=== PATIENT | male | born 2000 | race Caucasian/White ===

== ENCOUNTER 2024-07-19 20:01 | Emergency (ER) | payer MEDICAID, SELFPAY ==
[2024-07-19 20:02] VITALS: BMI 20.6
[2024-07-19 20:20] VITALS: BP 118/83; PULSE 106; RESP 19; TEMP 36.6; O2SAT 97
--- NOTE | 2024-07-19 20:25 | PD.EDADULT ---
ED General RME/HPI General Chief complaint: General Adult/Misc Complain Stated complaint: FEELS DEHYDRATED Time Seen by Provider: 07/19/24 20:23 Source: patient and family Arrival date/time: 07/19/24 20:01 23-year-old male with past medical history of right lower quadrant ileostomy presents emergency department complaining of feels dehydrated since today. Patient denies any chills, fever, nausea vomiting, abdominal pain, shortness of breath, or any other associated symptom. Mode of arrival: ambulatory Limitations: no limitations Related Data Home Medications ?Medication ?Instructions ?Recorded ?Confirmed azathioprine 50 mg tablet 50 mg PO BID 07/11/24 07/11/24 Previous Rx's ?Medication ?Instructions ?Recorded pantoprazole 40 mg tablet,delayed 40 mg PO QDAY #30 tabs 06/10/24 release diphenoxylate-atropine 2.5 2 tab PO TID 7 days #42 tabs 07/16/24 mg-0.025 mg tablet (Lomotil) loperamide 2 mg tablet 20 mg (10 x 2 mg) PO TID #180 tabs 07/16/24 mesalamine 500 mg capsule,extended 1,000 mg (2 x 500 mg) PO BID #60 07/16/24 release caps prednisone 5 mg tablets in a dose 5 mg PO QDAY #48 tabs 07/16/24 pack Allergies Allergy/AdvReac Type Severity Reaction Status Date / Time No Known Allergies Allergy Verified 07/04/24 12:55 Review of Systems Review of Systems Systems Reviewed: All systems reviewed, normal except as documented Constitutional Constitutional: Reports system reviewed and no additional complaints, except as documented, Denies body ache(s), Denies chills, Denies fever(s) and Reports other (Feels dehydrated) Eyes Eyes: Reports system reviewed and no additional complaints, except as documented and Denies change in vision ENT Ears, Nose, Mouth, and Throat: Reports system reviewed and no additional complaints, except as documented, Denies disequilibrium, Denies dizziness, Denies sore throat and Denies vertigo Cardiovascular Cardiovascular: Reports system reviewed and no additional complaints, except as documented, Denies chest pain and Denies dyspnea Respiratory Respiratory: Reports system reviewed and no additional complaints, except as documented, Denies chest congestion, Denies cough and Denies dyspnea Gastrointestinal Gastrointestinal: Reports system reviewed and no additional complaints, except as documented, Denies abdominal pain, Denies nausea and Denies vomiting Musculoskeletal Musculoskeletal: Reports system reviewed and no additional complaints, except as documented, Denies abnormal gait and Denies arthralgias Integumentary/Breasts Skin/Breast: Reports system reviewed and no additional complaints, except as documented, Denies erythema, Denies rash and Denies wounds Neurologic Neurologic: Reports system reviewed and no additional complaints, except as documented, Denies abnormal gait, Denies disequilibrium, Denies dizziness and Denies vertigo Past Medical History Past Medical History NEUROLOGIC: Negative Neurological Disorders or Seizures CARDIAC: Negative Cardiac Disorders or Congestive Heart Failure RESPIRATORY: Negative Chronic Obstructive Pulmonary Disease (COPD) or Asthma GASTROINTESTINAL: Negative Gastrointestinal Disorders GENITOURINARY: Negative Genitourinary Disorders or Renal Disease MUSCULOSKELETAL: Negative Musculoskeletal Disorders ENDOCRINE: Negative Endocrine Disorders, Diabetes Mellitus Type 1 or Diabetes Mellitus Type 2 HEMATOLOGIC: Negative Blood Disorders or Sickle Cell Disease OTHER HISTORY: Negative Hospitalization, Autoimmune Disease, Blood Transfusions, Blood Transfusion Reaction, Anesthesia Reactions, Chemotherapy, Hepatitis C or Cancer Social History SMOKING STATUS: Never smoker ED Exam General Limitations: Present no limitations General appearance: Present alert and in no apparent distress Head Head exam: Present atraumatic Eye Eye exam: Present normal appearance, PERRL and EOMI ENT ENT exam: Present normal exam, normal oropharynx and mucous membranes moist Neck Neck exam: Present normal inspection, full ROM and trachea midline Chest Chest inspection: Present normal inspection and symmetric chest wall rise Respiratory Respiratory exam: Present normal lung sounds bilaterally Cardiovascular Cardiovascular exam: Present regular rate, normal rhythm and normal heart sounds Abdominal Exam Abdominal exam: Present soft, normal bowel sounds and other (Ileostomy right lower quadrant) Extremities Exam Extremities exam: Present normal inspection and full ROM Back Exam Back exam: Present normal inspection and full ROM Neurological Exam Neurological exam: Present alert, oriented X3 and CN II-XII intact Psychiatric Psychiatric exam: Present normal affect and normal mood Skin Skin exam: Present warm, dry, intact and normal color Course Quality Measures none Orders Category Date Time Status CBC Stat Lab 07/19/24 20:42 Completed CMP [Comprehensive Metabolic Panel] Stat Lab 07/19/24 20:42 Completed Urinalysis, C/S if Indicated Stat Lab 07/19/24 21:00 Completed Vital Signs Vital signs: Vital Signs Temperature 98 F 07/19/24 20:20 Pulse Rate 106 H 07/19/24 20:20 Respiratory Rate 19 07/19/24 20:20 Blood Pressure 118/83 07/19/24 20:20 Pulse Oximetry (%) 97 07/19/24 20:20 Oxygen Delivery Method Room Air 07/19/24 20:20 97% room air within normal limits [facility] Patient data External records reviewed:: [facility] previous records Clinical information provided by:: patient Social determinants that could affect healthcare access:: none Patient has the following chronic illnesses:: See chart How is presenting disease/condition affected by chronic disease/condition?: exacerbated by Evaluation data The following diagnostics were reviewed and interpreted by me:: lab results Lab and/or radiology exams considered but not ordered:: Ordered Interpretation Summary: Interpreted by me Medications Medications considered but not ordered:: N/A Medication administrations:: n/a Consultations Consultation(s) initiated? (list below): No Diagnosis Differential Diagnosis ED Complaint MDM: Eloped before final disposition Most likely diagnosis given after review of the tests above:: Eloped before final disposition Admission Indicated Admission indicated?: not indicated Explain why admission is indicated or not indicated:: Eloped before final disposition Admission Request Was there a request for admission?: No Disposition Plan Disposition Plan: other (specify) (Eloped before final disposition) Medical Decision Making MDM Narrative MDM Narrative: 23-year-old male with past medical history of right lower quadrant ileostomy presents emergency department complaining of feels dehydrated since today. Patient denies any chills, fever, nausea vomiting, abdominal pain, shortness of breath, or any other associated symptom. Patient eloped before final disposition. Differential Diagnosis Differential Diagnosis: Eloped before final disposition Lab Data 07/19/24 20:42 07/19/24 20:42 Labs: Lab Results 07/19/24 07/19/24 Range/Units 20:42 21:00 WBC 8.4 (3.8-10.6) Thou/mm3 RBC 4.62 (4.50-5.90) Miln/mm3 Hgb 13.0 L D (13.5-16.0) g/dL Hct 39.8 L (41.0-53.0) % MCV 86 (80-100) fL MCH 28.1 (25.0-35.0) pg MCHC 32.7 (31.0-37.0) g/dl RDW Std Deviation 55.8 H (35.1-43.9) fL Plt Count 376 D (140-440) Thou/mm3 Neut % (Auto) 57 (37-80) % Lymph % (Auto) 22 (10-50) % Schuyler % (Auto) 13 H (0-12) % Eos % (Auto) 3 (0-10) % Baso % (Auto) 1 (0-2.5) % Neut # (Auto) 4.8 (1.8-7.7) Thou/mm3 Lymph # (Auto) 1.8 (1.0-4.8) Thou/mm3 Schuyler # (Auto) 1.1 H (0.0-0.8) Thou/mm3 Eos # (Auto) 0.2 (0.0-0.5) Thou/mm3 Baso # (Auto) 0.1 (0.0-0.2) Thou/mm3 Immature Gran # (Auto) 0.36 H (0.00-0.00) Thou/mm3 Absolute Nucleated RBC 0.00 (0.00-0.00) Thou/mm3 Immature Gran % 4 H (0-0) % Nucleated RBC % 0 (0) /100 WBC Sodium 142 (136-145) mMol/L Potassium 4.1 (3.4-5.1) mMol/L Chloride 104 (98-107) mMol/L Carbon Dioxide 31.0 (20.0-31.0) mMol/L Anion Gap 7 (7-16) BUN 16 (9-23) mg/dL Creatinine 0.8 (0.6-1.3) mg/dL Estim Creat Clear Calc 149.4 (>60) mL/min eGFR > 60 (60 - ) See Note BUN/Creatinine Ratio 20 (12-20) Ratio Glucose 94 (74-106) mg/dL Calculated Osmolality 284 (275-295) Calcium 10.6 (8.3-10.6) mg/dL Corrected Calcium 10.6 H (8.5-10.1) mg/dL Total Bilirubin 0.5 (0.3-1.2) mg/dL AST 43 H (0-34) U/L ALT 106 H (10-49) U/L Alkaline Phosphatase 133 H (46-116) U/L Total Protein 8.0 (5.7-8.2) gm/dL Albumin 4.9 (3.5-5.0) gm/dL Globulin 3.1 (2.3-3.5) gm/dL Albumin/Globulin Ratio 1.6 (1.2-2.2) Ur Collection Type Clean Catch Urine Color Yellow (Lt Yel-Yel) Urine Clarity Clear (Clear/Hazy) Urine pH 6.5 (5.0-7.0) Ur Specific [place] 1.037 H (1.001-1.035) Urine Protein 1+ A (Neg - Trace) Urine Glucose (UA) Negative (Negative) Urine Ketones Negative (Negative) Urine Blood Trace (Negative) Urine Nitrite Negative (Negative) Urine Bilirubin Negative (Negative) Urine Urobilinogen (Auto) Negative (0.0-1.0) mg/dL Ur Leukocyte Esterase Negative (Negative) Urine RBC 5 H (0-3) /hpf Urine WBC 4 (0-5) /hpf Ur Squamous Epith Cells < 1 (0-5) /hpf Urine Bacteria None (None) Ur Culture Indicated? Not Indicated Discharge Plan Plan Patient Disposition: Elopement Prescriptions/Referrals Prescriptions/Med Rec: No Action pantoprazole 40 mg tablet,delayed release (DR/EC) 40 mg PO QDAY Qty: 30 0RF azathioprine 50 mg tablet 50 mg PO BID Patient Comments: TAKE 1 TABLET BY MOUTH TWICE DAILY mesalamine 500 mg capsule, extended release 1,000 mg PO BID Qty: 60 2RF loperamide 2 mg tablet 20 mg PO TID Qty: 180 2RF diphenoxylate-atropine [Lomotil] 2.5-0.025 mg tablet 2 tab PO TID 7 Days Qty: 42 0RF prednisone 5 mg tablets,dose pack 5 mg PO QDAY Qty: 48 0RF Referrals: Hamlet Escamilla MD [Primary Care Provider] - In 1 week Problem List Clinical Impression: Eloped from emergency department Patient/Caregiver Discharge Instructions Print Language: Lithuanian MD Attestation MD Attestation The patient was seen by the midlevel practitioner. I, the co-signing physician, was present during the entire ER visit. While I did not physically examine the patient, I was available for consultation as needed.
[2024-07-19 21:08] LABS: Collection Type, Urine Clean Catch
[2024-07-19 21:14] LABS: Bilirubin,Urine Negative (Negative); Blood,Urine Trace (Negative); Clarity,Urine Clear (Clear/Hazy); Color,Urine Yellow (Lt Yel-Yel); Culture Indicated,Urine Not Indicated; Glucose, Urine Negative (Negative); Ketones,Urine Negative (Negative); Leukocyte Esterase,Urine Negative (Negative); Nitrite,Urine Negative (Negative); PH,Urine 6.5 (5.0-7.0); Protein,Urine 1+ (Neg - Trace); RBC,Urine 5 /hpf (0-3); Specific Gravity,Urine 1.037 (1.001-1.035); Squamous Epithelial Cell,Urine < 1 /hpf (0-5); Urobilinogen,Urine Negative mg/dL (0.0-1.0); WBC,Urine 4 /hpf (0-5)
[2024-07-19 21:21] LABS: Basophils # (Auto) 0.1 Thou/mm3 (0.0-0.2); Basophils % (Auto) 1 % (0-2.5); Eosinophils # (Auto) 0.2 Thou/mm3 (0.0-0.5); Eosinophils % (Auto) 3 % (0-10); Hematocrit 39.8 % (41.0-53.0); Immature Granulocytes % (Auto) 4 % (0-0); Immature Granulocytes Auto 0.36 Thou/mm3 (0.00-0.00); Lymphocytes # (Auto) 1.8 Thou/mm3 (1.0-4.8); Lymphocytes % (Auto) 22 % (10-50); Mean Corpuscular HGB Conc 32.7 g/dl (31.0-37.0); Mean Corpuscular Hemoglobin 28.1 pg (25.0-35.0); Mean Corpuscular Volume 86 fL (80-100); Monocytes # (Auto) 1.1 Thou/mm3 (0.0-0.8); Monocytes % (Auto) 13 % (0-12); Neutrophils # (Auto) 4.8 Thou/mm3 (1.8-7.7); Neutrophils % (Auto) 57 % (37-80); Nucleated Red Blood Cell % 0 /100 WBC (0); Platelet Count 376 Thou/mm3 (140-440); RDW Standard Deviation 55.8 fL (35.1-43.9); Red Blood Count 4.62 Miln/mm3 (4.50-5.90); White Blood Count 8.4 Thou/mm3 (3.8-10.6)
[2024-07-19 22:09] LABS: Alanine Aminotransferase 106 U/L (10-49); Albumin, Serum 4.9 gm/dL (3.5-5.0); Albumin/Globulin Ratio 1.6 (1.2-2.2); Alkaline Phosphatase 133 U/L (46-116); Anion Gap 7 (7-16); Aspartate Amino Transferase 43 U/L (0-34); BUN/Creatinine Ratio 20 Ratio (12-20); Bilirubin,Total 0.5 mg/dL (0.3-1.2); Blood Urea Nitrogen 16 mg/dL (9-23); Calcium 10.6 mg/dL (8.3-10.6); Calcium (Corrected) 10.6 mg/dL (8.5-10.1); Chloride 104 mMol/L (98-107); Creatinine (Component) 0.8 mg/dL (0.6-1.3); Estimated Creatinine Clearance 149.4 mL/min (>60); Globulin 3.1 gm/dL (2.3-3.5); Glucose 94 mg/dL (74-106); Osmolality,Calculated 284 (275-295); Potassium 4.1 mMol/L (3.4-5.1); Sodium 142 mMol/L (136-145); eGFR > 60 See Note
[2024-07-19 23:42] VITALS: BP 116/75; PULSE 77; RESP 18; TEMP 36.5; O2SAT 100
--- NOTE | 2024-07-19 23:43 | PC.NURSE ---
Pt walk out of RP after talking to provider.
== END 2024-07-19 23:44 | disposition left against medical advice (07) ==
PROVIDERS: Emergency Provider Emergency Medicine
DX: Z53.29 Procedure and treatment not carried out because of patient's decision for other reasons (principal)
CPT/HCPCS: 36415; 80053; 81001; 85025; 99281

== ENCOUNTER 2024-07-23 08:25 | Emergency (ER) | payer MEDICAID, SELFPAY ==
[2024-07-23 08:36] VITALS: BP 144/98; PULSE 90; RESP 19; TEMP 37; O2SAT 99; BMI 20.4
--- NOTE | 2024-07-23 08:37 | EDNOTE_ITS ---
ED Abdominal Pain RME/HPI General Chief Complaint: Abdominal Pain Stated complaint: lump under ostomy bag Time seen by provider: 07/23/24 08:31 Arrival date/time: 07/23/24 08:25 23-year-old male presents the emergency department today stating that he had a colostomy placed back in May patient reports he felt like there was a bump near his colostomy bag today patient reports no fever nausea or vomiting no diarrhea no change in stool pattern there are no other associated symptoms or aggravating factors no other modifying factors, patient denies taking medication before coming to ER today Limitations: no limitations Related Data Home Medications ?Medication ?Instructions ?Recorded ?Confirmed azathioprine 50 mg tablet 50 mg PO BID 07/11/24 07/11/24 Previous Rx's ?Medication ?Instructions ?Recorded pantoprazole 40 mg tablet,delayed 40 mg PO QDAY #30 tabs 06/10/24 release loperamide 2 mg tablet 20 mg (10 x 2 mg) PO TID #180 tabs 07/16/24 mesalamine 500 mg capsule,extended 1,000 mg (2 x 500 mg) PO BID #60 07/16/24 release caps prednisone 5 mg tablets in a dose 5 mg PO QDAY #48 tabs 07/16/24 pack Allergies Allergy/AdvReac Type Severity Reaction Status Date / Time No Known Allergies Allergy Verified 07/23/24 08:28 Review of Systems Review of Systems Systems Reviewed: All systems reviewed, normal except as documented Constitutional Constitutional: Reports system reviewed and no additional complaints, except as documented, Denies fever(s) and Denies headache(s) Eyes Eyes: Reports system reviewed and no additional complaints, except as documented and Denies blurry vision ENT Ears, Nose, Mouth, and Throat: Reports system reviewed and no additional complaints, except as documented, Denies headache(s), Denies nasal congestion and Denies nasal discharge Cardiovascular Cardiovascular: Reports system reviewed and no additional complaints, except as documented, Denies chest pain and Denies dyspnea Respiratory Respiratory: Reports system reviewed and no additional complaints, except as documented, Denies chest congestion, Denies cough and Denies dyspnea Gastrointestinal Gastrointestinal: Reports system reviewed and no additional complaints, except as documented, Denies abdominal pain and Reports other (Colostomy right lower abdomen) Integumentary/Breasts Skin/Breast: Reports system reviewed and no additional complaints, except as documented and Denies rash Neurologic Neurologic: Reports system reviewed and no additional complaints, except as documented, Reports as per HPI and Denies headache(s) Past Medical History Past Medical History NEUROLOGIC: Negative Neurological Disorders or Seizures CARDIAC: Negative Cardiac Disorders or Congestive Heart Failure RESPIRATORY: Negative Chronic Obstructive Pulmonary Disease (COPD) or Asthma GASTROINTESTINAL: Negative Gastrointestinal Disorders GENITOURINARY: Negative Genitourinary Disorders or Renal Disease MUSCULOSKELETAL: Negative Musculoskeletal Disorders ENDOCRINE: Negative Endocrine Disorders, Diabetes Mellitus Type 1 or Diabetes Mellitus Type 2 HEMATOLOGIC: Negative Blood Disorders or Sickle Cell Disease OTHER HISTORY: Negative Hospitalization, Autoimmune Disease, Blood Transfusions, Blood Transfusion Reaction, Anesthesia Reactions, Chemotherapy, Hepatitis C or Cancer Social History SMOKING STATUS: Never smoker ED Exam General Limitations: Present no limitations General appearance: Present alert and in no apparent distress Head Head exam: Present atraumatic Eye Eye exam: Present normal appearance, PERRL and EOMI ENT ENT exam: Present normal exam, normal oropharynx and mucous membranes moist Neck Neck exam: Present normal inspection, full ROM and trachea midline Chest Chest inspection: Present normal inspection and symmetric chest wall rise Respiratory Respiratory exam: Present normal lung sounds bilaterally Cardiovascular Cardiovascular exam: Present regular rate, normal rhythm and normal heart sounds Abdominal Exam Abdominal exam: Present soft, normal bowel sounds and other (Colostomy right lower abdomen); Absent distention, tenderness, guarding, rebound or rigidity Extremities Exam Extremities exam: Present normal inspection and full ROM Back Exam Back exam: Present normal inspection and full ROM Neurological Exam Neurological exam: Present alert, oriented X3 and CN II-XII intact Psychiatric Psychiatric exam: Present normal affect and normal mood Skin Skin exam: Present warm, dry, intact and normal color Course Quality Measures none Vital Signs Vital signs: Vital Signs Temperature 98.6 F 07/23/24 08:36 Pulse Rate 90 07/23/24 08:36 Respiratory Rate 19 07/23/24 08:36 Blood Pressure 144/98 H 07/23/24 08:36 Pulse Oximetry (%) 99 07/23/24 08:36 Oxygen Delivery Method Room Air 07/23/24 08:36 O2 saturation 99% room air within normal limits Abdominal Pain MDM MDM Narrative MDM Narrative:: 23-year-old male presents the emergency department today stating that he had a colostomy placed back in May patient reports he felt like there was a bump near his colostomy bag today patient reports no fever nausea or vomiting no diarrhea no change in stool pattern there are no other associated symptoms or aggravating factors no other modifying factors, patient denies taking medication before coming to ER today On exam patient well-appearing patient does not appear ill or toxic patient has nontender abdomen patient does have colostomy in place with no evidence of infe ction at site no swelling no bruising Explained to the patient that I do not appreciate any abnormality at this time he should follow-up with his general surgeon and for worsening symptoms return immediately Patient data External records reviewed:: [facility] previous records Clinical information provided by:: patient Social determinants that could affect healthcare access:: none Patient has the following chronic illnesses:: See history How is presenting disease/condition affected by chronic disease/condition?: caused by Evaluation data The following diagnostics were reviewed and interpreted by me:: lab results and radiology exam(s) Lab and/or radiology exams considered but not ordered:: Labs and radiology obtained Interpretation Summary: Reviewed by me Medications / Prescriptions Medications or Prescriptions considered but not ordered:: Given no meds Medication administrations:: Given no meds Consultations Consultation(s) initiated? (list below): No Diagnosis Differential diagnosis abdominal pain: abdominal pain, pancreatitis and small bowel obstruction Most likely diagnosis given after review of the tests above:: Colostomy problems Admission Indicated Admission indicated?: not indicated Admission Request Was there a request for admission?: No Disposition Plan Disposition Plan: Discharge Discharge Attestation Discharge Attestation: The patient and all family members were given an opportunity to ask questions and understood the discharge instructions. Discharge instructions specifically effects, indications for sooner follow up or return to the emergency department, and the expected course of current diagnosis. Patient condition: Stable Discharge Plan Plan Patient Disposition: HOME (Self Care) Disposition Comment: Stable Prescriptions/Referrals Prescriptions/Med Rec: No Action pantoprazole 40 mg tablet,delayed release (DR/EC) 40 mg PO QDAY Qty: 30 0RF azathioprine 50 mg tablet 50 mg PO BID Patient Comments: TAKE 1 TABLET BY MOUTH TWICE DAILY mesalamine 500 mg capsule, extended release 1,000 mg PO BID Qty: 60 2RF loperamide 2 mg tablet 20 mg PO TID Qty: 180 2RF prednisone 5 mg tablets,dose pack 5 mg PO QDAY Qty: 48 0RF Problem List Clinical Impression: Colostomy care Patient/Caregiver Discharge Instructions Additional Instructions: Please follow-up with your surgeon as discussed for worsening symptoms return i mmediately Print Language: Chinese Stand Alone Forms: Shelbi Award Info., Patient Portal Info Letter Attestation MD Attestation The patient was seen by the midlevel practitioner. I, the co-signing physician, was present during the entire ER visit. While I did not physically examine the patient, I was available for consultation as needed.
== END 2024-07-23 08:44 | disposition home or self-care (01) ==
LOC: SERX 08:42
PROVIDERS: Emergency Provider Emergency Medicine; PCP Emergency Medicine
DX: Z93.3 Colostomy status (principal)
CPT/HCPCS: 99281

== ENCOUNTER 2024-08-03 14:52 | Outpatient (AMB) | payer MEDICAID, SELFPAY ==
[2024-08-03 15:09] VITALS: BP 137/88; PULSE 72; RESP 18; TEMP 36.6; O2SAT 97; BMI 20.7
--- NOTE | 2024-08-03 15:09 | PD.GSCLVISIT ---
Vital Signs - [facility] 08/03/24 15:09 Height 1.88 m Height Method Stated Weight 73.539 kg Weight Measurement Method Standing Scale BMI 20.7 BP 137/88 H Blood Pressure Source Automatic Cuff Blood Pressure Location Left Upper Arm Position Sitting Respiration 18 Pulse 72 Pulse Source Monitor Temp 97.8 F Temp Source Temporal Artery Scan Pulse Oximetry (%) 97 Oxygen Delivery Method Room Air Med/Allergies Allergies & Medications Allergies No Known Allergies Allergy (Verified 08/03/24 15:10) MA Intake Visit Data Collection New Patient or Established: Established Patient (seen at [facility] within 3 years) Reason for Visit:: 2 WEEK FOLLOW UP Pain Present Currently: No [place] Setter Required: No PCP or OBGYN visit in last 3 months: Yes Hx Now: No Do You Feel Safe at Home: Yes Authorities Contacted: N/A Smoking Status Smoking Status: Never smoker Immunization / Flu Flu Vaccine in the Last 12 Months: No Flu Vaccine Exclusion Criteria: No Exclusion Criteria Past Medical History Past Medical History NEUROLOGIC: Negative Neurological Disorders or Seizures CARDIAC: Negative Cardiac Disorders or Congestive Heart Failure RESPIRATORY: Negative Chronic Obstructive Pulmonary Disease (COPD) or Asthma GASTROINTESTINAL: Negative Gastrointestinal Disorders GENITOURINARY: Negative Genitourinary Disorders or Renal Disease ENDOCRINE: Negative Endocrine Disorders, Diabetes Mellitus Type 1 or Diabetes Mellitus Type 2 HEMATOLOGIC: Negative Blood Disorders or Sickle Cell Disease OTHER HISTORY: Negative Hospitalization, Autoimmune Disease, Blood Transfusions, Blood Transfusion Reaction, Anesthesia Reactions, Chemotherapy, Hepatitis C or Cancer Social History SMOKING STATUS: Smoking status: Never smoker ALCOHOL: Alcohol Intake: Current ALCOHOL FREQUENCY: Alcohol Intake Frequency: holidays/special occasions only HOUSING: Housing: House LIVES WITH: Lives With: Significant Other HPI HPI Narrative 23M who presented May 2024 with pneumoperitoneum requiring emergent laparotomy, small bowel resection followed by end ileostomy 05/30, here for planned follow up after most recent discharge for dehydration. Pt reports he is taking imodium and lomotil as prescribed; he has episodes of nausea but has not decreased his anti-diarrheals as he is still having plenty of output. Pt is eating well and denies pain ROS Review of Systems Systems Reviewed: All systems reviewed, normal except as documented Objective/Exam General General Appearance: alert, cooperative and well groomed Resp Respiratory exam: Absent respiratory distress Abdominal Abdominal exam: Present soft, incision (midline incision healed) and other (ileostomy pink with brown liquid stool); Absent distention or tenderness Assessment & Plan Diagnosis / Problem List (1) Crohn's disease of ileum with complication: Status: Acute Assessment & Plan: 23M who presented May 2024 with pneumoperitoneum requiring emergent laparotomy, small bowel resection followed by end ileostomy 05/30, recovering well overall. I will schedule ileostomy reversal along with cholecystectomy (due to pt having choledocholithiasis in the interim) and explained risks of surgery including anastomotic leak, bleeding, infection and hernia. I also informed pt that his prednisone use slightly increases these risks. Pt and fiance expressed understanding and are agreeable to proceeding Office Procedures GNS Level of Care Nursing/Assessment Patient Status: Established Patient Nursing Assessment/Reassesment: Medication Reconciliation, Update PMH in EMR and Vital Signs Coordination of Care: Complex Care and Chronic Disease 1-5, Consent,records obtained, informed consent, Education Simp Pt/Fam and Staff clarify orders Established Patient Charge Established Patient Point Assignment: 85 Established Patient Point Charge: EP Level 3 (80-115) Patient Portal Questionaires Social History Living Situation History Housing: House Housing Other:: Patient resides with significant other. Tobacco History Smoking Status: Never smoker Alcohol History Alcohol Intake: Current Alcohol Intake Frequency: holidays/special occasions only Domestic Abuse History Do You Feel Safe at Home: Yes Review of Systems Report any current symptoms Only answer those that you have currently: Past Medical History Past Medical History Have you ever been diagnosed with any of the following: Neurological Problems Seizures: No Cardiology Problems Congestive Heart Failure: No Respiratory Problems Chronic Obstructive Pulmonary Disease (COPD): No Asthma: No Genital/Urinary Problems Renal Disease: No Endocrine Problems Diabetes Mellitus Type 1: No Diabetes Mellitus Type 2: No Blood Problems Sickle Cell Disease: No Other Problems Hospitalization: No Autoimmune Disease: No Blood Transfusions: No Blood Transfusion Reaction: No Anesthesia Reactions: No Chemotherapy: No Hepatitis C: No Cancer: No
== END 2024-08-03 16:13 | disposition home or self-care (01) ==
LOC: HODSRG 14:52
PROVIDERS: PCP Physician Assistant Medical; Referring Provider Physician Assistant Medical; Supervising Provider Surgery; Visit Provider Surgery
DX: Z48.815 Encounter for surgical aftercare following surgery on the digestive system (principal); K80.50 Calculus of bile duct without cholangitis or cholecystitis without obstruction
CPT/HCPCS: 99213; G0463

== ENCOUNTER → 2024-08-10 | Outpatient (CLI) | payer MEDICAID, SELFPAY | END | disposition home or self-care (01) | LOC: SWHD 13:38 | PROVIDERS: PCP Physician Assistant Medical; Referring Provider Physician Assistant Medical; Visit Provider Surgery | DX: T81.89XA Other complications of procedures, not elsewhere classified, initial encounter (principal); K50.90 Crohn's disease, unspecified, without complications; E86.0 Dehydration | CPT/HCPCS: 99213; A9270; G0463 ==

== ENCOUNTER 2024-08-18 12:30 | Inpatient (IN) | payer MEDICAID, SELFPAY ==
[2024-08-17 12:02] VITALS: BMI 19.8
[2024-08-17 13:11] LABS: Basophils % (Auto) 1 % (0-2.5); Eosinophils # (Auto) 0.3 Thou/mm3 (0.0-0.5); Eosinophils % (Auto) 4 % (0-10); Hematocrit 38.7 % (41.0-53.0); Hemoglobin 12.8 g/dL (13.5-16.0); Immature Granulocytes % (Auto) 1 % (0-0); Immature Granulocytes Auto 0.03 Thou/mm3 (0.00-0.00); Lymphocytes # (Auto) 1.5 Thou/mm3 (1.0-4.8); Lymphocytes % (Auto) 23 % (10-50); Mean Corpuscular HGB Conc 33.1 g/dl (31.0-37.0); Mean Corpuscular Hemoglobin 28.6 pg (25.0-35.0); Mean Corpuscular Volume 87 fL (80-100); Monocytes # (Auto) 0.9 Thou/mm3 (0.0-0.8); Monocytes % (Auto) 13 % (0-12); Neutrophils # (Auto) 3.9 Thou/mm3 (1.8-7.7); Neutrophils % (Auto) 60 % (37-80); Nucleated Red Blood Cell % 0 /100 WBC (0); Platelet Count 327 Thou/mm3 (140-440); RDW Standard Deviation 51.8 fL (35.1-43.9); Red Blood Count 4.47 Miln/mm3 (4.50-5.90); White Blood Count 6.6 Thou/mm3 (3.8-10.6)
[2024-08-17 13:23] LABS: Alanine Aminotransferase 134 U/L (10-49); Albumin, Serum 5.3 gm/dL (3.5-5.0); Alkaline Phosphatase 130 U/L (46-116); Anion Gap 7 (7-16); Aspartate Amino Transferase 88 U/L (0-34); BUN/Creatinine Ratio 16 Ratio (12-20); Bilirubin,Total 0.8 mg/dL (0.3-1.2); Blood Urea Nitrogen 14 mg/dL (9-23); Calcium 10.4 mg/dL (8.3-10.6); Calcium (Corrected) 10.4 mg/dL (8.5-10.1); Carbon Dioxide 31.1 mMol/L (20.0-31.0); Chloride 100 mMol/L (98-107); Creatinine (Component) 0.9 mg/dL (0.6-1.3); Estimated Creatinine Clearance 127.3 mL/min (>60); Globulin 2.6 gm/dL (2.3-3.5); Glucose 85 mg/dL (74-106); INR 1.2 (0.9-1.3); Osmolality,Calculated 275 (275-295); Partial Thromboplastin Time 29.5 Seconds (22.0-36.0); Potassium 3.6 mMol/L (3.4-5.1); Prothrombin Time 12.9 Seconds (9.0-12.2); Sodium 138 mMol/L (136-145); Total Protein 7.9 gm/dL (5.7-8.2); eGFR > 60 See Note
[2024-08-18] VITALS (11 sets, daily range): BP systolic 129–161; BP diastolic 88–116; PULSE 73–109; RESP 12–20; TEMP 36.2–36.4; O2SAT 99–100; BMI 19.5; BMI 22.4
[2024-08-18] MEDS: RINGERS LACTATED 1000 ML 1,000 ML 20 ML IV (13:23)
--- NOTE | 2024-08-18 19:16 | PD.SUROPNT ---
Date of Procedure 08/18/24 Pre Op Diagnosis Crohn's disease requiring ileostomy, choledocholithiasis Post Op Diagnosis Same Procedure Laparotomy, cholecystectomy, reversal of ileostomy, appendectomy Findings Gallbladder with stones, [id number] ileoileal anastomosis created, normal-appearing appendix Procedure Description After discussion of risks and benefits, patient was brought to the operating room, SCDs were placed and general anesthesia was induced. He received preoperative antibiotics and the ileostomy was closed with 0 silk suture. He was prepped and draped in the usual sterile fashion. After timeout a midline incision was made with a #10 blade and the tissues were dissected with electrocautery. When the peritoneum was reached it was elevated with tonsil clamps and incised with Metzenbaum scissors. The remaining peritoneum was opened using electrocautery. First attention was turned to the gallbladder. The fundus of the gallbladder was grasped and retracted cephalad and the infundibulum was grasped and retracted laterally. The critical view of safety was achieved using blunt dissection and the cystic duct and cystic artery were clipped and transected in the usual fashion. The clips of the cystic duct were reinforced with a Vicryl Endoloop. The gallbladder was removed from gallbladder bed using electrocautery and hemostasis was confirmed. After that I then turned attention to the existing end ileostomy. An incision was then made circumferentially adjacent to the stoma using electrocautery and the tissues were dissected using a combination of blunt dissection and electrocautery until the stoma was freed. This portion of the ileum was then returned to the midline and eviscerated through the midline incision. There were some adhesions of the small bowel to the lower abdominal wall so the midline incision was extended inferiorly until the efferent limb of the ileum was identified. A [id number] ileoileal anastomosis was created between the afferent and efferent loops and the staple line was reinforced with a 3-0 Vicryl running and locking suture. The crotch of the anastomosis was also reinforced with the 3-0 Vicryl serosal suture. The abdomen was irrigated and hemostasis was confirmed. At this point I spoke to the patient's fianc as I realize I had not counseled them preoperatively that appendectomye would be advised in this case just in case patient returns to the ER with questionable abdominal pain in the setting of his known Crohn's disease. I explained the risks and benefits of the procedure and his fianc?e agreed for me to proceed. I then performed appendectomy by creating a window between the base of the appendix and the mesoappendix using blunt dissection and stapling the base of the appendix with a 60 mm blue load stapler. The mesoappendix was transected with the Enseal device. The staple line was examined and there were no signs of bleeding. Again the abdomen was irrigated and there were no signs of bleeding. The ileostomy fascia was closed with interrupted 0 Ethibond [id number] sutures and then approximated with a 0 Vicryl pursestring suture. The midline fascia was closed with 0 PDS. Both wounds were irrigated and dressed with a wound VAC that was bridged between both sites. Patient was extubated and brought to PACU in stable condition. Pathology / specimen Other (Gallbladder, portion of ileum, appendix) Estimated Blood Loss 300 Surgeon Roula Estrella MD Surgical Staff Operation Date: 08/18/24 14:15 Case Staff PROFESSOR OF RHETORIC: Dewey Avina RN First Assistant: Shweta Palma
--- NOTE | 2024-08-18 19:30 | SUR.PHASEI ---
Addendum entered by Nichole Andino RN 08/18/24 20:43: 1930: wound vac in place Original Note: pt arrived to PACU via bed, breathing unlabored, dressing to abdomen clean, dry and intact-skin under dressing red on right lower abdomen-Dr Estrella aware and at bedside-no new orders given, report from Reza FREEMAN and Tonio HUSAIN
[2024-08-18] MEDS: MORPHINE SULF 1 MG/ML PCA SYRINGE 30 ML PCA (20:01)
[2024-08-18] MEDS: SODIUM CHLORIDE 0.9% 1000 ML 1,000 ML 75 ML IV (20:04)
--- NOTE | 2024-08-18 20:20 | SUR.PHASEI ---
pt drowsy but arouses to verbal commands, breathing unlabored, dressing to abdomen clean, dry, and intact, wound vac in place, report called to Shruthi FREEMAN, pt transferred to room at this time
[2024-08-18] MEDS: HEPARIN SOD INJ 5000 UNIT/ML VIAL SC (22:52)
[2024-08-19] VITALS (12 sets, daily range): BP systolic 114–128; BP diastolic 79–89; PULSE 93–117; RESP 16–97; TEMP 36.2–37; O2SAT 96–100; BMI 22.2
[2024-08-19] MEDS: CEFOXITIN 2 GM in SODIUM CHLORIDE 0.9% (P) 50 ML IV ×3 (00:03→16:22)
[2024-08-19] MEDS: ACETAMINOPHEN IVPB 1,000 MG/100 ML VIAL 250 MG IV ×3 (01:04→13:12)
[2024-08-19 05:49] LABS: Basophils % (Auto) 0 % (0-2.5); Eosinophils % (Auto) 0 % (0-10); Hemoglobin 11.7 g/dL (13.5-16.0); Immature Granulocytes % (Auto) 0 % (0-0); Immature Granulocytes Auto 0.06 Thou/mm3 (0.00-0.00); Lymphocytes # (Auto) 0.6 Thou/mm3 (1.0-4.8); Lymphocytes % (Auto) 4 % (10-50); Mean Corpuscular HGB Conc 32.5 g/dl (31.0-37.0); Mean Corpuscular Hemoglobin 28.5 pg (25.0-35.0); Mean Corpuscular Volume 88 fL (80-100); Monocytes # (Auto) 0.9 Thou/mm3 (0.0-0.8); Monocytes % (Auto) 7 % (0-12); Neutrophils # (Auto) 12.4 Thou/mm3 (1.8-7.7); Neutrophils % (Auto) 88 % (37-80); Nucleated Red Blood Cell % 0 /100 WBC (0); Platelet Count 278 Thou/mm3 (140-440); RDW Standard Deviation 53.7 fL (35.1-43.9); Red Blood Count 4.11 Miln/mm3 (4.50-5.90)
[2024-08-19 06:08] LABS: Anion Gap 10 (7-16); BUN/Creatinine Ratio 13 Ratio (12-20); Blood Urea Nitrogen 10 mg/dL (9-23); Carbon Dioxide 23.6 mMol/L (20.0-31.0); Chloride 105 mMol/L (98-107); Creatinine (Component) 0.8 mg/dL (0.6-1.3); Estimated Creatinine Clearance 162.2 mL/min (>60); Glucose 83 mg/dL (74-106); Magnesium 1.4 mg/dL (1.6-2.6); Osmolality,Calculated 275 (275-295); Phosphorous 4.4 mg/dL (2.4-5.1); Potassium 4.2 mMol/L (3.4-5.1); Sodium 139 mMol/L (136-145); eGFR > 60 See Note
[2024-08-19] MEDS: MESALAMINE 250 MG CAPSULE.ER 500 MG PO ×3 (06:40→21:02)
[2024-08-19] MEDS: HEPARIN SOD INJ 5000 UNIT/ML VIAL SC ×3 (06:46→21:09)
[2024-08-19] MEDS: azaTHIOprine 50 MG TABLET PO ×2 (08:21→21:02)
[2024-08-19] MEDS: LIDOCAINE 5% 1 PATCH TOP (08:21)
[2024-08-19] MEDS: SODIUM CHLORIDE 0.9% 1000 ML 1,000 ML 75 ML IV (08:21)
[2024-08-19] MEDS: predniSONE 5 MG TABLET PO (08:22)
[2024-08-19] MEDS: Magnesium Sulfate 2 GM Ivpb 2 GM/50 ML BAG IV (09:49)
--- NOTE | 2024-08-19 10:34 | PC.WOUND ---
[facility] home wound vac rental process initiated. WENDY [phone], [facility] phone , [facility] fax
--- NOTE | 2024-08-19 11:30 | CHAP ---
Patient was visited by the Spiritual Care Volunteer who prayed for them. Volunteer was in the hospital from c10:00-11:30)
--- NOTE | 2024-08-19 12:05 | PC.SS ---
Patient is alert/oriented. He's independent with ADL's. He resides with grain blender. She is at bedside. Patient was admitted for ileostomy revision. Patient was recently here and discharged with home health services-[facility]. He discharged with a wound vac. Patient had surgery yesterday and will continue wound vac and home health wound care services. Patient states he already has a wheelchair and cane at home. Patient states he follows with physician at [facility]. Discharge plan is to return home with grain blender who will continue to assist in care. Alt decision maker is his grain blender, Sathish. Transportation to be provided by her.
--- NOTE | 2024-08-19 14:23 | ESPR_ITS ---
Documentation for date of: 08/19/24 Subjective Subjective Narrative: Feels pain is not well controlled with morphine MANAGER MISSION, tolerating CLD but has not yet passed gas, remaining afebrile Exam Vital Signs Temp Pulse Resp BP Pulse Ox O2 Del Method O2 Flow Rate 98.1 F 105 H 16 114/83 96 Room Air 1 08/19/24 11:47 08/19/24 11:47 08/19/24 11:47 08/19/24 11:47 08/19/24 11:47 08/19/24 11:47 08/19/24 07:59 Constitutional Constitutional: no acute distress Routine Respiratory Exam Respiratory: Present no resp distress Routine Abdominal Exam Abdominal: Present soft and wound (midline wound with vac in place to suction, with sanguinous output but no signs of active bleeding); Absent tenderness or distended Results Results: Laboratory Laboratory results: results reviewed Assessment & Plan Plan 23M who presented May 2024 with pneumoperitoneum requiring emergent laparotomy, small bowel resection followed by end ileostomy 05/30, being treated for Crohn's now s/p ileostomy reversal with cholecystectomy 08/18, gradually recovering Switch to dilaudid MANAGER MISSION DC tariq Encourage ambulation/IS Procedures Procedures Laparotomy, cholecystectomy, reversal of ileostomy, appendectomy
[2024-08-19] MEDS: HYDROmorphone 1 MG/ML PCA SYRINGE 30ML 30 MG IV (14:39)
--- NOTE | 2024-08-19 15:11 | PC.NURSE ---
Amaya Catheter discontinued per .
[2024-08-19] MEDS: ONDANSETRON INJ 2 MG/ML INJ 2 ML 4 MG IV (22:51)
[2024-08-20] VITALS (10 sets, daily range): BP systolic 117–144; BP diastolic 81–98; PULSE 110–123; RESP 18–91; TEMP 36.6–37.8; O2SAT 90–93
[2024-08-20] MEDS: CEFOXITIN 2 GM in SODIUM CHLORIDE 0.9% (P) 50 ML IV (00:15)
[2024-08-20] MEDS: SODIUM CHLORIDE 0.9% 1000 ML 1,000 ML 75 ML IV (03:27)
[2024-08-20] MEDS: MESALAMINE 250 MG CAPSULE.ER 500 MG PO ×3 (05:13→22:03)
[2024-08-20 06:19] LABS: Basophils % (Auto) 0 % (0-2.5); Eosinophils # (Auto) 0.1 Thou/mm3 (0.0-0.5); Eosinophils % (Auto) 1 % (0-10); Hematocrit 31.5 % (41.0-53.0); Hemoglobin 10.3 g/dL (13.5-16.0); Immature Granulocytes % (Auto) 1 % (0-0); Immature Granulocytes Auto 0.05 Thou/mm3 (0.00-0.00); Lymphocytes # (Auto) 0.6 Thou/mm3 (1.0-4.8); Lymphocytes % (Auto) 6 % (10-50); Mean Corpuscular HGB Conc 32.7 g/dl (31.0-37.0); Mean Corpuscular Hemoglobin 28.7 pg (25.0-35.0); Mean Corpuscular Volume 88 fL (80-100); Monocytes # (Auto) 1.3 Thou/mm3 (0.0-0.8); Monocytes % (Auto) 12 % (0-12); Neutrophils # (Auto) 8.9 Thou/mm3 (1.8-7.7); Neutrophils % (Auto) 81 % (37-80); Nucleated Red Blood Cell % 0 /100 WBC (0); Platelet Count 206 Thou/mm3 (140-440); RDW Standard Deviation 55.6 fL (35.1-43.9); Red Blood Count 3.59 Miln/mm3 (4.50-5.90)
[2024-08-20 06:40] LABS: Anion Gap 7 (7-16); BUN/Creatinine Ratio 12 Ratio (12-20); Blood Urea Nitrogen 7 mg/dL (9-23); Calcium 8.7 mg/dL (8.3-10.6); Carbon Dioxide 25.4 mMol/L (20.0-31.0); Chloride 105 mMol/L (98-107); Creatinine (Component) 0.6 mg/dL (0.6-1.3); Estimated Creatinine Clearance 216.3 mL/min (>60); Glucose 107 mg/dL (74-106); Osmolality,Calculated 271 (275-295); Potassium 3.8 mMol/L (3.4-5.1); Sodium 137 mMol/L (136-145); eGFR > 60 See Note
[2024-08-20] MEDS: ONDANSETRON INJ 2 MG/ML INJ 2 ML 4 MG IV (06:40)
[2024-08-20] MEDS: predniSONE 5 MG TABLET PO (08:11)
[2024-08-20] MEDS: azaTHIOprine 50 MG TABLET PO ×2 (08:11→22:02)
[2024-08-20] MEDS: SOD PHOS ADDITIVE 30 MMOL in SODIUM CHLORIDE 0.9% 500 ML 500 ML 62.5 MMOL IV (10:06)
--- NOTE | 2024-08-20 14:20 | XR_ITS ---
EXAMINATION: Abdomen, supine, upright 2 views. Technique: Abdomen AP upright, supine 2 views Date and time of exam: August 20, 2024 1513 hrs. Indications: Postop abdominal pain nausea Findings: Markedly air distended stomach Distended colonic and small bowel loops No free air Impression: Severe ileus pattern
--- NOTE | 2024-08-20 14:22 | EKG_ITS ---
[facility] Test Date: 2024-08-20 Pat Name: CATHRYN ARREOLA [facility] Intranet Support: PAT : 2000 Requested By: Roula Estrella Order Number: [id number] Reading MD: Roula Estrella Measurements Intervals [place] Rate: 124 P: 48 AR: 136 QRS: 30 QRSD: 90 T: -6 QT: 268 QTc: 385 Interpretive Statements SINUS TACHYCARDIA NONSPECIFIC T-WAVE ABNORMALITY ABNORMAL RHYTHM ECG Compared to ECG 05/29/2024 05:37:50 Short AR interval no longer present T-wave abnormality still present /store/S0/[id number].pdf
--- NOTE | 2024-08-20 15:14 | PD.SURPROG ---
Documentation for date of: 08/20/24 Subjective Subjective Narrative: Tmax 100 this am, HR 110s-120s, reporting pain which is somewhat helped by dilaudid; pt also having nausea but has not vomited, has not yet passed gas or had a BM Exam Vital Signs Temp Pulse Resp BP Pulse Ox O2 Del Method O2 Flow Rate 98.1 F 123 H 25 H 144/96 H 91 L Room Air 1 08/20/24 12:00 08/20/24 12:08/20/24 12:08/20/24 12:08/20/24 12:08/20/24 12:00 08/20/24 04:00 Constitutional Constitutional: no acute distress Routine Respiratory Exam Respiratory: Present no resp distress Routine Abdominal Exam Abdominal: Present soft, tenderness and wound (midline wound with vac in place ); Absent distended Results Results: Laboratory Laboratory results: results reviewed Assessment & Plan Plan 23M who presented May 2024 with pneumoperitoneum requiring emergent laparotomy, small bowel resection followed by end ileostomy 05/30, being treated for Crohn's now s/p ileostomy reversal with cholecystectomy 08/18, gradually recovering AXR to eval ileus/SBO Strict I&O Procedures Procedures Laparotomy, cholecystectomy, reversal of ileostomy, appendectomy
[2024-08-20] MEDS: LORazepam 2 MG/ML VIAL 1 MG IVP (16:00)
[2024-08-20] MEDS: BENZOCAINE 20% (Hurricaine) SPRAY 1 DOSE TOP (16:35)
--- NOTE | 2024-08-20 16:52 | XR_ITS ---
Examination: AP chest single view Technique one AP portable upright chest single view Exam date and time: August 20, 2024 1718 hrs. Indications: Post orogastric tube placement. Findings: Orogastric tube in the stomach Moderate colonic ileus No free air Impression: Orogastric tube in the stomach satisfactory position
[2024-08-20] MEDS: DEXTROSE 5%-0.45% NS 1,000 ML 100 ML IV (18:03)
--- NOTE | 2024-08-20 19:38 | PC.NURSE ---
Pt is currently connected to NG-tube tube on LIS, per Dr. Sameer escalante to give PO meds.
[2024-08-21] VITALS (10 sets, daily range): BP systolic 136–144; BP diastolic 91–106; PULSE 80–117; RESP 16–91; TEMP 36.4–37.5; O2SAT 91–93
[2024-08-21] MEDS: DEXTROSE 5%-0.45% NS 1,000 ML 100 ML IV ×2 (03:50→16:15)
[2024-08-21] MEDS: MESALAMINE 250 MG CAPSULE.ER 500 MG PO (05:02)
[2024-08-21 08:11] LABS: Basophils % (Auto) 0 % (0-2.5); Eosinophils # (Auto) 0.1 Thou/mm3 (0.0-0.5); Eosinophils % (Auto) 2 % (0-10); Hematocrit 29.8 % (41.0-53.0); Hemoglobin 9.9 g/dL (13.5-16.0); Immature Granulocytes % (Auto) 1 % (0-0); Immature Granulocytes Auto 0.04 Thou/mm3 (0.00-0.00); Lymphocytes # (Auto) 0.6 Thou/mm3 (1.0-4.8); Lymphocytes % (Auto) 10 % (10-50); Mean Corpuscular HGB Conc 33.2 g/dl (31.0-37.0); Mean Corpuscular Hemoglobin 29.2 pg (25.0-35.0); Mean Corpuscular Volume 88 fL (80-100); Monocytes # (Auto) 0.8 Thou/mm3 (0.0-0.8); Monocytes % (Auto) 13 % (0-12); Neutrophils # (Auto) 4.7 Thou/mm3 (1.8-7.7); Neutrophils % (Auto) 74 % (37-80); Nucleated Red Blood Cell % 0 /100 WBC (0); Platelet Count 241 Thou/mm3 (140-440); Red Blood Count 3.39 Miln/mm3 (4.50-5.90); White Blood Count 6.3 Thou/mm3 (3.8-10.6)
[2024-08-21 08:21] LABS: Anion Gap 8 (7-16); BUN/Creatinine Ratio 12 Ratio (12-20); Blood Urea Nitrogen 7 mg/dL (9-23); Calcium 8.6 mg/dL (8.3-10.6); Carbon Dioxide 29.5 mMol/L (20.0-31.0); Chloride 103 mMol/L (98-107); Creatinine (Component) 0.6 mg/dL (0.6-1.3); Estimated Creatinine Clearance 216.3 mL/min (>60); Glucose 112 mg/dL (74-106); Osmolality,Calculated 278 (275-295); Phosphorous 1.9 mg/dL (2.4-5.1); Potassium 3.6 mMol/L (3.4-5.1); Sodium 140 mMol/L (136-145); eGFR > 60 See Note
[2024-08-21] MEDS: predniSONE 5 MG TABLET PO (08:30)
[2024-08-21] MEDS: azaTHIOprine 50 MG TABLET PO (08:30)
[2024-08-21] MEDS: ACETAMINOPHEN 325 MG TABLET 650 MG PO ×2 (08:51→18:05)
[2024-08-21] MEDS: SODIUM CHLORIDE 0.9% 1000 ML 1,000 ML 999 ML IV (10:03)
[2024-08-21] MEDS: SOD PHOS ADDITIVE 30 MMOL in SODIUM CHLORIDE 0.9% 500 ML 500 ML 62.5 MMOL IV (10:29)
[2024-08-21] MEDS: ONDANSETRON INJ 2 MG/ML INJ 2 ML 4 MG IV ×2 (14:09→21:46)
--- NOTE | 2024-08-21 15:10 | PD.SURPROG ---
Documentation for date of: 08/21/24 Subjective Subjective Narrative: Today pt reports feeling somewhat better, though continuing to have pain and nausea. He has not yet passing gas or having BMs, using dilaudid COATER SMOKING PIPE regularly. NG yesterday had 600cc on initial output and 1L total over day but since this morning has had approximately 200cc. Pt has not yet gotten out of bed since surgery Exam Vital Signs Temp Pulse Resp BP Pulse Ox O2 Del Method O2 Flow Rate 97.6 F 103 H 18 136/97 H 93 L Nasal Cannula 1 08/21/24 12:00 08/21/24 12:00 08/21/24 14:20 08/21/24 12:00 08/21/24 12:00 08/21/24 07:40 08/21/24 04:00 Constitutional Constitutional: no acute distress Routine Respiratory Exam Respiratory: Present no resp distress Routine Abdominal Exam Abdominal: Present soft and wound (midline wound with vac in place, improved erythema of skin, no active bleeding or drainage); Absent tenderness or distended Results Results: Laboratory Laboratory results: results reviewed Assessment & Plan Plan 23M who presented May 2024 with pneumoperitoneum requiring emergent laparotomy, small bowel resection followed by end ileostomy 05/30, being treated for Crohn's now s/p ileostomy reversal with cholecystectomy 08/18, course significant for ileus, with normal WBC remaining afebrile NG to LIS Strict I&O Pt declined wound vac change today, will do tomorrow AM Procedures Procedures Laparotomy, cholecystectomy, reversal of ileostomy, appendectomy
--- NOTE | 2024-08-21 18:05 | PC.NURSE ---
Spoke with Dr. Estrella pt. complaining of headache Md okayed x1 order for tylenol
[2024-08-22] VITALS (9 sets, daily range): BP systolic 127–143; BP diastolic 77–96; PULSE 68–97; RESP 15–20; TEMP 36.2–37.2; O2SAT 92–100
[2024-08-22] MEDS: HYDROmorphone 1 MG/ML PCA SYRINGE 30ML 30 MG IV (02:35)
[2024-08-22] MEDS: MESALAMINE 250 MG CAPSULE.ER 500 MG PO ×3 (05:41→21:52)
[2024-08-22 06:29] LABS: Basophils % (Auto) 0 % (0-2.5); Eosinophils # (Auto) 0.2 Thou/mm3 (0.0-0.5); Eosinophils % (Auto) 3 % (0-10); Hematocrit 28.1 % (41.0-53.0); Hemoglobin 9.3 g/dL (13.5-16.0); Immature Granulocytes % (Auto) 0 % (0-0); Immature Granulocytes Auto 0.02 Thou/mm3 (0.00-0.00); Lymphocytes # (Auto) 0.8 Thou/mm3 (1.0-4.8); Lymphocytes % (Auto) 14 % (10-50); Mean Corpuscular HGB Conc 33.1 g/dl (31.0-37.0); Mean Corpuscular Hemoglobin 29.1 pg (25.0-35.0); Mean Corpuscular Volume 88 fL (80-100); Monocytes # (Auto) 0.7 Thou/mm3 (0.0-0.8); Monocytes % (Auto) 12 % (0-12); Neutrophils % (Auto) 70 % (37-80); Nucleated Red Blood Cell % 0 /100 WBC (0); Platelet Count 249 Thou/mm3 (140-440); RDW Standard Deviation 54.8 fL (35.1-43.9); White Blood Count 5.7 Thou/mm3 (3.8-10.6)
[2024-08-22] MEDS: DEXTROSE 5%-0.45% NS 1,000 ML 100 ML IV ×2 (06:42→17:51)
[2024-08-22 06:43] LABS: Anion Gap 8 (7-16); BUN/Creatinine Ratio 12 Ratio (12-20); Blood Urea Nitrogen 6 mg/dL (9-23); Calcium 9.2 mg/dL (8.3-10.6); Carbon Dioxide 28.3 mMol/L (20.0-31.0); Chloride 106 mMol/L (98-107); Creatinine (Component) 0.5 mg/dL (0.6-1.3); Estimated Creatinine Clearance 259.5 mL/min (>60); Glucose 95 mg/dL (74-106); Magnesium 1.9 mg/dL (1.6-2.6); Osmolality,Calculated 280 (275-295); Phosphorous 2.6 mg/dL (2.4-5.1); Potassium 3.6 mMol/L (3.4-5.1); Sodium 142 mMol/L (136-145); eGFR > 60 See Note
[2024-08-22] MEDS: predniSONE 5 MG TABLET PO (10:17)
--- NOTE | 2024-08-22 13:45 | PC.WOUND ---
Dressing changed at bedside with Dr. Estrella, wound beds x2 beefy red with no s/s of infection or necrosis. Dressing replaced with 2 pieces of black foam at 125mmgh continuos suction. Pt tolerated well on IMPORT/EXPORT ADMINISTRATOR. [facility] home wound vac E-signature obtained by Dr. Estrella. Called [facility], spoke with Vanna, required documents received, order remains pending insurance review. Will continue to follow.
[2024-08-22] MEDS: HEPARIN SOD INJ 5000 UNIT/ML VIAL SC (14:01)
--- NOTE | 2024-08-22 15:49 | PD.SURPROG ---
Documentation for date of: 08/22/24 Subjective Subjective Narrative: Feeling slightly better today, nausea is intermittent but pt has passed gas, 400cc from NG since yesterday. Remaining afebrile with normal WBC, pt sat up with help from PT today Exam Vital Signs Temp Pulse Resp BP Pulse Ox O2 Del Method O2 Flow Rate 98.6 F 89 20 139/95 H 95 Nasal Cannula 1 08/22/24 12:00 08/22/24 14:58 08/22/24 14:58 08/22/24 12:00 08/22/24 14:58 08/22/24 12:00 08/22/24 14:58 Constitutional Constitutional: no acute distress Routine Respiratory Exam Respiratory: Present no resp distress Routine Abdominal Exam Abdominal: Present soft, tenderness (moderate tenderness diffusely) and wound (midline and R stoma wounds with beefy red granulation tissue, no surrounding erythema, no fluctuance or tenderness); Absent distended or rebound Results Results: Laboratory Laboratory results: results reviewed Assessment & Plan Plan 23M who presented May 2024 with pneumoperitoneum requiring emergent laparotomy, small bowel resection followed by end ileostomy 05/30, being treated for Crohn's now s/p ileostomy reversal with cholecystectomy 08/18, course significant for ileus, with normal WBC remaining afebrile NG to LIS Strict I&O Wound vac change MWF Encourage PT/OOB/incentive spirometry Procedures Procedures Laparotomy, cholecystectomy, reversal of ileostomy, appendectomy
[2024-08-22] MEDS: azaTHIOprine 50 MG TABLET PO (21:52)
[2024-08-23] VITALS (10 sets, daily range): BP systolic 122–146; BP diastolic 76–94; PULSE 57–103; RESP 15–19; TEMP 36.6–37.4; O2SAT 96–100; BMI 22.2
[2024-08-23] MEDS: DEXTROSE 5%-0.45% NS 1,000 ML 100 ML IV ×2 (05:26→15:21)
[2024-08-23] MEDS: MESALAMINE 250 MG CAPSULE.ER 500 MG PO ×3 (05:26→21:29)
[2024-08-23] MEDS: predniSONE 5 MG TABLET PO (09:08)
[2024-08-23] MEDS: azaTHIOprine 50 MG TABLET PO ×2 (09:09→21:29)
--- NOTE | 2024-08-23 09:12 | PC.WOUND ---
[facility] Home wound vac authorized for release when medially ready.
[2024-08-23 09:16] LABS: Anion Gap 6 (7-16); BUN/Creatinine Ratio 12 Ratio (12-20); Blood Urea Nitrogen 6 mg/dL (9-23); Calcium 8.8 mg/dL (8.3-10.6); Carbon Dioxide 27.6 mMol/L (20.0-31.0); Chloride 103 mMol/L (98-107); Creatinine (Component) 0.5 mg/dL (0.6-1.3); Estimated Creatinine Clearance 259.5 mL/min (>60); Glucose 129 mg/dL (74-106); Magnesium 1.9 mg/dL (1.6-2.6); Osmolality,Calculated 273 (275-295); Phosphorous 1.9 mg/dL (2.4-5.1); Potassium 3.4 mMol/L (3.4-5.1); Sodium 137 mMol/L (136-145); eGFR > 60 See Note
--- NOTE | 2024-08-23 09:43 | PC.NURSE ---
Dilaudid DONOR PROCESSOR pump discontinued @ 0810. 24mg/ml medication wasted with 2nd nurse Megan FREEMAN
--- NOTE | 2024-08-23 10:42 | ESPR_ITS ---
Documentation for date of: 08/23/24 Subjective Subjective Narrative: Pain improved today, did not use DIAMOND SELECTOR last night and pt had a large volume BM but still feeling nauseated, had an episode of emesis after receiving a PO med this morning, 150cc NG output overnight Exam Vital Signs Temp Pulse Resp BP Pulse Ox O2 Del Method O2 Flow Rate 98.8 F 75 19 122/76 98 Nasal Cannula 1 08/23/24 08:00 08/23/24 08:00 08/23/24 08:10 08/23/24 08:00 08/23/24 08:00 08/23/24 08:00 08/23/24 08:00 Constitutional Constitutional: no acute distress Routine Respiratory Exam Respiratory: Present no resp distress Routine Abdominal Exam Abdominal: Present soft and wound (midline wound with vac in place to suction); Absent tenderness or distended Results Results: Laboratory Laboratory results: results reviewed Assessment & Plan Plan 23M who presented May 2024 with pneumoperitoneum requiring emergent laparotomy, small bowel resection followed by end ileostomy 05/30, being treated for Crohn's now s/p ileostomy reversal with cholecystectomy 08/18, course significant for ileus. Pt is now having bowel function although continuing to report nausea NG to LIS, strict I&O Encouraged ambulation/OOB Replete electrolytes Procedures Procedures Laparotomy, cholecystectomy, reversal of ileostomy, appendectomy
[2024-08-23] MEDS: POT PHOS 15 mMol in NS 250 ML 15 MMOL/250 ML BAG 62.5 MMOL IV ×2 (12:34→16:32)
--- NOTE | 2024-08-23 13:10 | CHAP ---
09:30 AM Visited by spiritual care volunteer Provided prayer for Patient.
[2024-08-24] VITALS (8 sets, daily range): BP systolic 127–142; BP diastolic 73–90; PULSE 50–89; RESP 16–20; TEMP 36.2–36.6; O2SAT 96–97
[2024-08-24] MEDS: DEXTROSE 5%-0.45% NS 1,000 ML 100 ML IV (01:20)
[2024-08-24] MEDS: MESALAMINE 250 MG CAPSULE.ER 500 MG PO ×3 (05:13→21:21)
[2024-08-24 06:00] LABS: Basophils % (Auto) 1 % (0-2.5); Eosinophils # (Auto) 0.2 Thou/mm3 (0.0-0.5); Eosinophils % (Auto) 4 % (0-10); Hematocrit 29.3 % (41.0-53.0); Hemoglobin 9.9 g/dL (13.5-16.0); Immature Granulocytes % (Auto) 1 % (0-0); Immature Granulocytes Auto 0.03 Thou/mm3 (0.00-0.00); Lymphocytes # (Auto) 1.1 Thou/mm3 (1.0-4.8); Lymphocytes % (Auto) 20 % (10-50); Mean Corpuscular HGB Conc 33.8 g/dl (31.0-37.0); Mean Corpuscular Hemoglobin 28.9 pg (25.0-35.0); Mean Corpuscular Volume 85 fL (80-100); Monocytes # (Auto) 0.7 Thou/mm3 (0.0-0.8); Monocytes % (Auto) 12 % (0-12); Neutrophils # (Auto) 3.6 Thou/mm3 (1.8-7.7); Neutrophils % (Auto) 63 % (37-80); Nucleated Red Blood Cell % 0 /100 WBC (0); Platelet Count 389 Thou/mm3 (140-440); RDW Standard Deviation 50.8 fL (35.1-43.9); Red Blood Count 3.43 Miln/mm3 (4.50-5.90); White Blood Count 5.7 Thou/mm3 (3.8-10.6)
[2024-08-24 06:31] LABS: Anion Gap 9 (7-16); BUN/Creatinine Ratio 10 Ratio (12-20); Blood Urea Nitrogen 6 mg/dL (9-23); Calcium 9.2 mg/dL (8.3-10.6); Carbon Dioxide 29.9 mMol/L (20.0-31.0); Chloride 101 mMol/L (98-107); Creatinine (Component) 0.6 mg/dL (0.6-1.3); Estimated Creatinine Clearance 216.3 mL/min (>60); Glucose 110 mg/dL (74-106); Magnesium 1.8 mg/dL (1.6-2.6); Osmolality,Calculated 278 (275-295); Phosphorous 2.9 mg/dL (2.4-5.1); Sodium 140 mMol/L (136-145); eGFR > 60 See Note
[2024-08-24] MEDS: azaTHIOprine 50 MG TABLET PO ×2 (09:20→21:20)
[2024-08-24] MEDS: predniSONE 5 MG TABLET PO (09:20)
[2024-08-24] MEDS: POTASSIUM CHL 10 mEq IVPB 10 MEQ/100 ML BAG 100 MEQ IV (09:21)
--- NOTE | 2024-08-24 10:31 | PD.SURPROG ---
Documentation for date of: 08/24/24 Subjective Subjective Narrative: Feeling better today with less pain, no nausea, had another bowel movement this morning, feeling hungry. Labs normal aside from potassium of 3 Exam Vital Signs Temp Pulse Resp BP Pulse Ox O2 Del Method O2 Flow Rate 97.2 F 65 20 127/79 97 Room Air 1 08/24/24 08:00 08/24/24 08:00 08/24/24 08:00 08/24/24 08:00 08/24/24 08:00 08/24/24 08:00 08/24/24 04:00 Constitutional Constitutional: no acute distress Routine Respiratory Exam Respiratory: Present no resp distress Routine Abdominal Exam Abdominal: Present soft and wound (Midline wound with VAC in place); Absent tenderness or distended Results Results: Laboratory Laboratory results: results reviewed Assessment & Plan Plan 23M who presented May 2024 with pneumoperitoneum requiring emergent laparotomy, small bowel resection followed by end ileostomy 05/30, being treated for Crohn's now s/p ileostomy reversal with cholecystectomy 08/18, course significant for ileus, now with signs of improvement Reg diet Wound vac change MWF PO pain meds DC pending tolerating regular diet Procedures Procedures Laparotomy, cholecystectomy, reversal of ileostomy, appendectomy
--- NOTE | 2024-08-24 11:31 | PC.PT ---
Patient will be D/C from PT services secondary to he is xI with bed mobility, transfers, and ambulation. He is at his PLOF. Patient is safe to ambulate in the wahl with no DME. RN notified.
--- NOTE | 2024-08-24 12:06 | PC.CM ---
Per SS notes Patient was recently here and discharged with home health services-[facility]. He discharged with a wound vac. Patient had surgery yesterday and will continue wound vac and home health wound care services. Patient states he follows with physician at [facility].
[2024-08-24] MEDS: POTASSIUM CHLORIDE 20 mEq TABCR 40 MEQ PO (12:49)
[2024-08-24] MEDS: HYDROcodone/APAP 10/325 TAB PO (12:49)
[2024-08-25] VITALS: BP 132/84; PULSE 72; RESP 17; TEMP 36.3; O2SAT 97
[2024-08-25] MEDS: ACETAMINOPHEN 325 MG TABLET 650 MG PO (02:42)
[2024-08-25 04:00] VITALS: BP 133/84; PULSE 74; RESP 16; TEMP 36.5; O2SAT 97
[2024-08-25 05:21] LABS: Basophils % (Auto) 0 % (0-2.5); Eosinophils # (Auto) 0.5 Thou/mm3 (0.0-0.5); Eosinophils % (Auto) 7 % (0-10); Hematocrit 28.2 % (41.0-53.0); Hemoglobin 9.5 g/dL (13.5-16.0); Immature Granulocytes % (Auto) 1 % (0-0); Immature Granulocytes Auto 0.04 Thou/mm3 (0.00-0.00); Lymphocytes # (Auto) 1.1 Thou/mm3 (1.0-4.8); Lymphocytes % (Auto) 17 % (10-50); Mean Corpuscular HGB Conc 33.7 g/dl (31.0-37.0); Mean Corpuscular Hemoglobin 28.6 pg (25.0-35.0); Mean Corpuscular Volume 85 fL (80-100); Monocytes # (Auto) 0.9 Thou/mm3 (0.0-0.8); Monocytes % (Auto) 13 % (0-12); Neutrophils # (Auto) 4.2 Thou/mm3 (1.8-7.7); Neutrophils % (Auto) 62 % (37-80); Nucleated Red Blood Cell % 0 /100 WBC (0); Platelet Count 388 Thou/mm3 (140-440); RDW Standard Deviation 50.3 fL (35.1-43.9); Red Blood Count 3.32 Miln/mm3 (4.50-5.90); White Blood Count 6.8 Thou/mm3 (3.8-10.6)
[2024-08-25] MEDS: MESALAMINE 250 MG CAPSULE.ER 500 MG PO ×2 (06:16→15:20)
[2024-08-25 07:00] LABS: Anion Gap 10 (7-16); BUN/Creatinine Ratio 16 Ratio (12-20); Blood Urea Nitrogen 8 mg/dL (9-23); Calcium 9.4 mg/dL (8.3-10.6); Chloride 107 mMol/L (98-107); Creatinine (Component) 0.5 mg/dL (0.6-1.3); Estimated Creatinine Clearance 259.5 mL/min (>60); Glucose 98 mg/dL (74-106); Magnesium 1.8 mg/dL (1.6-2.6); Osmolality,Calculated 277 (275-295); Phosphorous 3.5 mg/dL (2.4-5.1); Potassium 3.5 mMol/L (3.4-5.1); Sodium 140 mMol/L (136-145); eGFR > 60 See Note
[2024-08-25 07:43] VITALS: BP 130/87; PULSE 86; RESP 18; TEMP 36.4; O2SAT 95
[2024-08-25] MEDS: azaTHIOprine 50 MG TABLET PO (08:50)
[2024-08-25] MEDS: predniSONE 5 MG TABLET PO (08:50)
[2024-08-25 12:00] VITALS: BP 140/88; PULSE 86; RESP 18; TEMP 36.4; O2SAT 95
--- NOTE | 2024-08-25 12:00 | PC.WOUND ---
Addendum entered by Lou Umaña RN 08/25/24 14:25: Made aware by Pablo Transfer RN, home health unable to see for wound vac dressing change until Thursday08/29/24. Spoke with Dr. Estrella, aware home health unable to see until Thursday. unable to see pt in her clinic for dressing change tomorrow. Ok to discharge in AM after dressing change. Original Note: Made aware by Dr Estrella, tenative discharge when home health arranged. Spoke with Pablo Alva RN, aware of discharge plan
--- NOTE | 2024-08-25 12:55 | ESDS_ITS ---
Planned Discharge Date 08/25/24 DS: Providers Provider Date of admission: 08/18/24 12:30 Primary care physician: Physician No Primary/Family Admitting Provider: Roula Estrella MD Attending Provider on Admission: Roula Estrella MD Consults: 08/18/24 21:26 Referral Registered Dietitian Routine Comment: 08/19/24 08:49 Referral Discharge Planning Routine Comment: Instructions: Will need wound vac on discharge Referral Nutritional Services Routine Comment: Instructions: Ileostomy reversal abdominal wound Referral Wound Care Routine Comment: 08/21/24 15:52 Referral Physical Therapy Routine Comment: Physician Instructions: Attending Provider on DC: Roula Estrella MD Discharging Provider: Roula Estrella MD Diagnosis Discharge Diagnosis (1) Crohn's disease of ileum with complication: Status: Acute (2) Ileus following gastrointestinal surgery: Status: Acute Problem List Completed Was Problem List Reviewed/Reconciled?: Yes Hospital Course Brief History: 23M who presented May 2024 with pneumoperitoneum requiring emergent laparotomy, small bowel resection followed by end ileostomy 05/30, being treated for Crohn's admitted for planned ileostomy reversal. Surgery was undertaken 08/18 and included cholecystectomy due to choledocholithiasis as well as appendectomy due to history of Crohn's. Postoperatively pt developed ileus requiring NG decompression; he has since recovered well return of bowel function, pain well controlled and tolerating regular diet, appropriate for discharge home with wound vac in in place to midline and R stoma wounds Exam Vital Signs Temp Pulse Resp BP Pulse Ox O2 Del Method O2 Flow Rate 97.5 F 86 18 140/88 H 95 Room Air 1 08/25/24 12:08/25/24 12:08/25/24 12:08/25/24 12:08/25/24 12:08/25/24 12:00 08/24/24 04:00 Constitutional Constitutional: no acute distress Routine Respiratory Exam Respiratory: Present no resp distress Routine Abdominal Exam Abdominal: Present soft and wound (midline wound with vac in place to suction, no surrounding erythema); Absent tenderness or distended Discharge Plan Plan Patient Disposition: HOME (Self Care) Prescriptions/Referrals Prescriptions/Med Rec: New oxycodone-acetaminophen [Percocet] 10-325 mg tablet 1 tab PO Q6H MDD 6 tabs PRN (Reason: pain) Qty: 30 0RF Rx Instructions: pt underwent laparotomy surgery on 08/18/24 Continued mesalamine [Pentasa] 500 mg capsule, extended release 500 mg PO TID prednisone 5 mg tablets,dose pack 5 mg PO QDAY Qty: 48 0RF azathioprine 50 mg tablet 50 mg PO BID Qty: 60 3RF Discontinued loperamide [Anti-Diarrheal (loperamide)] 2 mg capsule 20 mg PO TID Qty: 180 3RF Referrals: Roula Estrella MD [Physician] - (You will receive a phone call to confirm a follow-up appt with me on Sep 2 ) No Primary/Family,Physician [Primary Care Provider] - Patient/Caregiver Discharge Instructions Other Discharge Activity Instructions:: 1) Follow up with Dr. Estrella in 2 weeks, office will call to confirm but feel free to to call if needed at [phone] 2) Wound care: Wound vac to abdomen x2: cleanse with normal saline, pat dry, apply black foam to wound beds, bridge together, drape and trac pad at 125mmhg continuous suction. Change Mon, wed, fri and PRN IF unable to keep wound vac seal -Wash hands and remove all wound vac foam pieces- use normal saline to saturate for easier removal. -Cleanse wound with normal saline and pat dry with gauze. -Wash hands again -Moistened dry gauze lightly with normal saline and pack wound. -Layer with dry gauze. Cover with abd pad and secure with tape. -Change once a day until home health see you again. Avoid lifiting objects >10lbs for 6 weeks If you develop worsening pain, nausea/vomiting or fever please seek care in ER Education Materials: Nutrition for Wound Healing, Incision Care Dc, Changing Dressing Dc, Discharge Instructions Wound ..., Preventing Surgical Site Infections, Negative Pressure Wound Therapy Print Language: Chinese Stand Alone Forms: Shelbi Award Info., Patient Portal Info Letter Discharge Order Discharge Orders: Discharge (Routine); Ordered 08/25/24 Ordered By: Roula Estrella Results Results: Laboratory Laboratory results: results reviewed Procedures Procedure Date 08/18/24 Procedures Laparotomy, cholecystectomy, reversal of ileostomy, appendectomy
[2024-08-25 13:41] VITALS: PULSE 73; RESP 16; O2SAT 99
--- NOTE | 2024-08-25 13:41 | PC.CM ---
Addendum entered by Karli Rodriguez RN 08/25/24 18:59: I updated [facility] via [employer]. Addendum entered by Karli Rodriguez RN 08/25/24 18:57: received call from Lou wound nurse that Dr. Estrella is OK for the to change the dressing until [facility] sees the pt on Thursday and Dr. Estrella is discharging the pt. today. Addendum entered by Karli Rodriguez RN 08/25/24 14:22: Lou informed me that she spoke to Dr. Estrella and pt will be discharged tomorrow after the wound vac change. Addendum entered by Karli Rodriguez RN 08/25/24 14:19: 1412 called and informed Lou the conversation with Waleska at [facility]. Addendum entered by Karli Rodriguez RN 08/25/24 14:15: [address] [facility], spoke to Waleska and informed pt is ready to be discharged today. If Malachi can follow the pt tomorrow for the wound vac change day. Waleska stated they don't have any spot open tomorrow. But if we can dc the pt after wound vac change tomorrow and Malachi can see the pt on Thursday for the next wound vac change day. Addendum entered by Karli Rodriguez RN 08/25/24 14:14: 1302 received call from Lou wound nurse that pt is ready to be discharged. I informed her that the referral is sent, waiting for their response. Original Note: Per SS notes, pt is open with [facility]. HH referral sent to [facility]. Awaiting responses. Pending start of care date.
[2024-08-25] MEDS: HYDROcodone/APAP 10/325 TAB PO (13:50)
--- NOTE | 2024-08-25 15:07 | PD.SURPROG ---
Documentation for date of: 08/25/24 Subjective Subjective Brief History: 23M who presented May 2024 with pneumoperitoneum requiring emergent laparotomy, small bowel resection followed by end ileostomy 05/30, being treated for Crohn's admitted for planned ileostomy reversal. Surgery was undertaken 08/18 and included cholecystectomy due to choledocholithiasis as well as appendectomy due to history of Crohn's. Narrative: Feeling well overall, tolerating regular diet and had another BM, remaining afebrile with normal WBC Exam Vital Signs Temp Pulse Resp BP Pulse Ox O2 Del Method O2 Flow Rate 97.5 F 73 16 140/88 H 99 Room Air 1 08/25/24 12:00 08/25/24 13:41 08/25/24 13:41 08/25/24 12:00 08/25/24 13:41 08/25/24 12:00 08/24/24 04:00 Constitutional Constitutional: no acute distress Routine Respiratory Exam Respiratory: Present no resp distress Routine Abdominal Exam Abdominal: Present soft and wound (wound vac in place to midline wound, no erythema, no fluctuance or tenderness); Absent tenderness or distended Results Results: Laboratory Laboratory results: results reviewed Assessment & Plan Plan 23M who presented May 2024 with pneumoperitoneum requiring emergent laparotomy, small bowel resection followed by end ileostomy 05/30, being treated for Crohn's now s/p ileostomy reversal with cholecystectomy 08/18, course significant for ileus, now with signs of improvement Reg diet DC tomorrow pending home health Procedures Procedures Laparotomy, cholecystectomy, reversal of ileostomy, appendectomy
--- NOTE | 2024-08-25 15:30 | PC.WOUND ---
Dr Estrella and I at bedside, pt expressing frustrations of needing to stay for dressing change. Pt and Significant other at bedside willing to change his own wound vac dressing tomorrow than home health to follow on Thursday. Significant other has been with patient during most to all dressing changes at bedside with proposal lead writer, has also changed his dressings at home after prior discharges and feels comfortable doing it tomorrow. I feel she is confident and competent to provide this care. agreeable. Message left for Pablo transfer RN, making her aware of plan
[2024-08-25 16:00] VITALS: BP 124/82; PULSE 76; RESP 16; TEMP 36.4; O2SAT 99
--- NOTE | 2024-08-25 16:49 | PC.WOUND ---
Transitioned pt over to home [facility] unit with POD signed and faxed to [facility] with return receipt. S/N VRTM [id number] with good seal at 125mmhg continuous suction. Reviewed/educated on the following: s/s of infection or active bleeding from wounds to seek MD or ED attention, 1800 contact number, ready care kit (dressings/canisters), on/off, clamps, connection, alarms, drape replacement for leak. Dressing change tomorrow than m/w/f. Dressing application sets including bridging and ensuring foam to foam connection with cutting of drape. NS wet/dry dressings. Monitoring of brusing to right flank- any increase in size/tenderness/pain/weakness to return to ED. Pt and significant other verbalized understanding, supplies given at bedside. Remaining discharge endorsed to Shweta FREEMAN.
== END 2024-08-25 17:22 | disposition home health service (06) | DRG 230 ==
LOC: S2W2 12:31 → S3SX 20:33
PROVIDERS: Anesthesiology; Admitting Provider Surgery; Visit Provider Surgery
PROC: 0DBB0ZZ Excision of Ileum, Open Approach (ICD-10-PCS; principal; 2024-08-18 14:00)
DX: Z43.2 Encounter for attention to ileostomy (principal); K80.20 Calculus of gallbladder without cholecystitis without obstruction; K91.89 Other postprocedural complications and disorders of digestive system; K56.7 Ileus, unspecified; K50.00 Crohn's disease of small intestine without complications; Z90.49 Acquired absence of other specified parts of digestive tract; Y83.8 Other surgical procedures as the cause of abnormal reaction of the patient, or of later complication, without mention of misadventure at the time of the procedure; Y92.230 Patient room in hospital as the place of occurrence of the external cause
CPT/HCPCS: 36415; 71045; 74018; 80048; 80053; 83735; 84100; 85025; 85610; 85730; 93005; 97162; A4217; A4649; J0131; J0360; J0694; J1643; J1885; J2060; J2250; J2270; J2405; J2704; J3010; J3475; J3480; J3490; J7030; J7040; J7042; J7050; J7120; J7500; J7512; J7999; A9270; J1596; J1644

== ENCOUNTER 2024-09-01 21:22 | Emergency (ER) | payer MEDICAID, SELFPAY ==
[2024-09-01 21:23] VITALS: BMI 19.3
[2024-09-01 21:31] VITALS: BP 138/89; PULSE 99; RESP 18; TEMP 36.9; O2SAT 96
--- NOTE | 2024-09-01 21:47 | XR_ITS ---
Examination: CT abdomen with intravenous contrast CT pelvis with intravenous contrast 2-D coronal reconstructions 2-D sagittal reconstructions Date and time of exam:September 01, 2000 2417 hrs. Comparison July 10, 2024 Indications: Status post ileostomy reversal August 18, 2024, onset abdominal pain beginning 2 days ago. CTDI: vol (mGy) 6.38 DLP: (mGycm) 387 Technique: Multiple axial sections of the abdomen and pelvis have been obtained. 64 slice high-resolution scanner used. 3 mm axial sections have been obtained, post intravenous injection 60 cc [id number] 2-D sagittal, coronal reconstructions obtained. Low dose protocols were performed. One or more of the following dose reduction techniques were used; automated exposure control, adjustment of the mA and/or KV according to patient size, use of iterative reconstruction technique. Findings: No focal liver or splenic lesions Absent gallbladder No pancreatic or adrenal mass No renal or ureteral calculi Soft tissue mass in the subcutaneous fatty tissue anterior lateral right abdomen, 6.4 x 3.6 x 6.3 cm Absent appendix Anterior pelvic mildly fluid distended small bowel loops with bowel sutures No bowel obstruction Colonic diverticulosis No prostatomegaly No bladder mass or bladder calculi Intact osseous structures Impression: Soft tissue mass in the subcutaneous fatty tissue anterior right lateral abdomen, 6.4 x 3.6 x 6.3 cm, most consistent with hematoma, clinical correlation advised Postoperative mild small bowel ileus, recommend 3 way abdominal series follow-up as clinically warranted
[2024-09-01 22:09] LABS: Lactate (Lactic Acid) 1.6 mMol/L (0.4-2.0)
[2024-09-01 22:13] LABS: Basophils # (Auto) 0.1 Thou/mm3 (0.0-0.2); Basophils % (Auto) 1 % (0-2.5); Eosinophils # (Auto) 0.1 Thou/mm3 (0.0-0.5); Eosinophils % (Auto) 1 % (0-10); Hematocrit 36.3 % (41.0-53.0); Hemoglobin 11.6 g/dL (13.5-16.0); Immature Granulocytes % (Auto) 1 % (0-0); Immature Granulocytes Auto 0.09 Thou/mm3 (0.00-0.00); Lymphocytes # (Auto) 1.2 Thou/mm3 (1.0-4.8); Lymphocytes % (Auto) 10 % (10-50); Mean Corpuscular Hemoglobin 28.2 pg (25.0-35.0); Mean Corpuscular Volume 88 fL (80-100); Monocytes % (Auto) 9 % (0-12); Neutrophils # (Auto) 9.2 Thou/mm3 (1.8-7.7); Neutrophils % (Auto) 79 % (37-80); Nucleated Red Blood Cell % 0 /100 WBC (0); Platelet Count 534 Thou/mm3 (140-440); RDW Standard Deviation 51.9 fL (35.1-43.9); Red Blood Count 4.12 Miln/mm3 (4.50-5.90); White Blood Count 11.7 Thou/mm3 (3.8-10.6)
[2024-09-01 22:40] LABS: Alanine Aminotransferase 18 U/L (10-49); Albumin, Serum 4.8 gm/dL (3.5-5.0); Albumin/Globulin Ratio 1.5 (1.2-2.2); Alkaline Phosphatase 79 U/L (46-116); Anion Gap 5 (7-16); Aspartate Amino Transferase 10 U/L (0-34); BUN/Creatinine Ratio 17 Ratio (12-20); Bilirubin,Total 0.3 mg/dL (0.3-1.2); Blood Urea Nitrogen 12 mg/dL (9-23); Calcium 10.1 mg/dL (8.3-10.6); Calcium (Corrected) 10.1 mg/dL (8.5-10.1); Carbon Dioxide 29.4 mMol/L (20.0-31.0); Chloride 103 mMol/L (98-107); Creatinine (Component) 0.7 mg/dL (0.6-1.3); Estimated Creatinine Clearance 160.4 mL/min (>60); Globulin 3.2 gm/dL (2.3-3.5); Glucose 148 mg/dL (74-106); Osmolality,Calculated 276 (275-295); Potassium 3.8 mMol/L (3.4-5.1); Procalcitonin 0.05 ng/ml (0.0-0.49); Sodium 137 mMol/L (136-145); eGFR > 60 See Note
[2024-09-02] MEDS: cefuroxime axetiL 250 MG TABLET 500 MG PO (02:28)
[2024-09-02 02:30] VITALS: BP 128/76; PULSE 76; RESP 18; TEMP 36.7; O2SAT 98
--- NOTE | 2024-09-02 04:53 | EDNOTE_ITS ---
ED Abdominal Pain RME/HPI General Chief Complaint: Abdominal Pain Stated complaint: ABD PAIN, S/P ABD SURGERY Time seen by provider: 09/01/24 21:46 Arrival date/time: 09/01/24 21:22 23M with history of Crohn's presents to ED with ab pain s/p ileostomy reversal by Dr. Estrella several days ago. Patient is having BMs and denies N/V. Next follow-up is next week. Limitations: no limitations Related Data Home Medications ?Medication ?Instructions ?Recorded ?Confirmed mesalamine 500 mg capsule,extended 500 mg PO TID 08/17/24 08/18/24 release (Pentasa) Previous Rx's ?Medication ?Instructions ?Recorded prednisone 5 mg tablets in a dose 5 mg PO QDAY #48 tabs 07/16/24 pack azathioprine 50 mg tablet 50 mg PO BID #60 tabs 08/08/24 oxycodone-acetaminophen 10 mg-325 1 tab PO Q6H PRN pain #30 tabs 08/25/24 mg tablet (Percocet) cefuroxime axetil 500 mg tablet 500 mg PO BID 7 days #14 tabs 09/02/24 Allergies Allergy/AdvReac Type Severity Reaction Status Date / Time No Known Allergies Allergy Verified 09/01/24 21:25 Review of Systems Review of Systems Systems Reviewed: All systems reviewed, normal except as documented Constitutional Constitutional: Reports system reviewed and no additional complaints, except as documented, Denies fever(s) and Denies headache(s) ENT Ears, Nose, Mouth, and Throat: Denies disequilibrium and Denies headache(s) Cardiovascular Cardiovascular: Reports system reviewed and no additional complaints, except as documented, Denies chest pain and Denies dyspnea Respiratory Respiratory: Reports system reviewed and no additional complaints, except as documented, Denies cough and Denies dyspnea Gastrointestinal Gastrointestinal: Reports system reviewed and no additional complaints, except as documented, Reports as per HPI, Reports abdominal pain, Denies nausea and Denies vomiting Neurologic Neurologic: Reports system reviewed and no additional complaints, except as documented, Denies confusion, Denies disequilibrium and Denies headache(s) Psychiatric Psychiatric: Denies confusion Past Medical History Past Medical History NEUROLOGIC: Negative Neurological Disorders or Seizures CARDIAC: Negative Cardiac Disorders, Congestive Heart Failure or Hypertension RESPIRATORY: Negative Chronic Obstructive Pulmonary Disease (COPD) or Asthma GASTROINTESTINAL: Positive Gastrointestinal Disorders, Gall Bladder Disease (gallstones), Crohn's Disease (Dx may 2024) and Obstructive Bowel (sbo before); Negative Hepatitis, Ulcerative Colitis, Diverticulitis, Hemorrhoids or Gastroesophageal Reflux Disease GENITOURINARY: Negative Genitourinary Disorders or Renal Disease MUSCULOSKELETAL: Negative Musculoskeletal Disorders ENDOCRINE: Negative Endocrine Disorders, Diabetes Mellitus Type 1 or Diabetes Mellitus Type 2 HEMATOLOGIC: Negative Blood Disorders or Sickle Cell Disease PSYCHO/SOCIAL: Positive Attention Deficit Hyperactivity Disorder OTHER HISTORY: Positive Hospitalization (surgery); Negative Autoimmune Disease, Shingles, Falls, Blood Transfusions, Blood Transfusion Reaction, Anesthesia Reactions, Chemotherapy, Hepatitis C or Cancer Family History FAMILY HISTORY: Positive Family Surgery; Negative Family Psychiatric Problems, Family Respiratory Disorders, Family Cardiac Disorders, Family Gastrointestinal Problems, Family Cancer or Family Anesthesia Reaction Surgical History SURGICAL: Positive Abdominal Surgery (this admission-laparotony,reversal of ileostomy 08/18/24) and Bowel Surgery (bowel resection with ileostomy) Social History SMOKING STATUS: Never smoker SECOND HAND EXPOSURE: No ED Exam General Limitations: Present no limitations General appearance: Present alert and in no apparent distress Head Head exam: Present atraumatic Eye Eye exam: Present normal appearance, PERRL and EOMI ENT ENT exam: Present normal exam, normal oropharynx and mucous membranes moist Neck Neck exam: Present normal inspection, full ROM and trachea midline Chest Chest inspection: Present normal inspection and symmetric chest wall rise Respiratory Respiratory exam: Present normal lung sounds bilaterally Cardiovascular Cardiovascular exam: Present regular rate, normal rhythm and normal heart sounds Abdominal Exam Abdominal exam: Present soft, normal bowel sounds and other (post-op wound) Extremities Exam Extremities exam: Present normal inspection and full ROM Back Exam Back exam: Present normal inspection and full ROM Neurological Exam Neurological exam: Present alert, oriented X3 and CN II-XII intact Psychiatric Psychiatric exam: Present normal affect and normal mood Skin Skin exam: Present warm, dry, intact and normal color Course Quality Measures none Orders Category Date Time Status CT Screening NOW Care 09/01/24 21:47 Completed Insert IV NOW Care 09/01/24 21:47 Completed Wound Care NOW Care 09/02/24 02:[address] abdomen pelvis w con Stat Exams 09/01/24 21:47 Completed CBC Stat Lab 09/01/24 22:00 Completed CMP [Comprehensive Metabolic Panel] Stat Lab 09/01/24 22:00 Completed Lactate (Lactic Acid) Stat Lab 09/01/24 22:00 Completed Procalcitonin Stat Lab 09/01/24 22:00 Completed cefuroxime axetiL [cefUROXime axetil] Med 09/02/24 02:25 Discontinued 500 mg PO X1 ONE Vital Signs Vital signs: Vital Signs Temperature 98.4 F 09/01/24 21:31 Pulse Rate 99 09/01/24 21:31 Respiratory Rate 18 09/01/24 21:31 Blood Pressure 138/89 H 09/01/24 21:31 Pulse Oximetry (%) 96 09/01/24 21:31 Oxygen Delivery Method Room Air 09/01/24 21:31 O2 at 96% on RA and WNLs Abdominal Pain MDM MDM Narrative MDM Narrative:: 23M with history of Crohn's presents to ED with ab pain s/p ileostomy reversal by Dr. Estrella several days ago. Patient is having BMs and denies N/V. Next follow-up is next week. Physical exam reveals mild discharge around wound after dressing removed with somewhat foul smell. No obvious redness or tenderness. Patient is afebrile, calm, and alert. CT reveals subcutaneous hematoma and mild ileus. Treatment not necessary as patient has normal intake/output. Multiple attempts were done to contact Dr. 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 Minimal leukocytosis. Procal/lactate normal. Wound cleaned and re-dressed. Will give cephalosporin ABX. Patient data External records reviewed:: [facility] previous records Clinical information provided by:: patient Social determinants that could affect healthcare access:: none Patient has the following chronic illnesses:: Crohn's How is presenting disease/condition affected by chronic disease/condition?: exacerbated by Evaluation data The following diagnostics were reviewed and interpreted by me:: lab results and radiology exam(s) Lab and/or radiology exams considered but not ordered:: ordered Interpretation Summary: above Medications / Prescriptions Medications or Prescriptions considered but not ordered:: ordered Medication administrations:: Medication Administration History Discontinued Medications Cefuroxime Axetil (Cefuroxime Axetil 250 Mg Tablet) 500 mg PO X1 ONE Stop: 09/02/24 02:26 Last Admin: 09/02/24 02:28 Dose: 500 mg Documented By: CB above Consultations Consultation(s) initiated? (list below): No Diagnosis Differential diagnosis abdominal pain: abdominal pain, acute appendicitis, calculus of kidney, constipation, endometriosis, gastroenteritis, pancreatitis, small bowel obstruction and other (post op exam) Most likely diagnosis given after review of the tests above:: post op exam Admission Indicated Admission indicated?: not indicated Admission Request Was there a request for admission?: No Disposition Plan Disposition Plan: Discharge Discharge Attestation Discharge Attestation: The patient and all family members were given an opportunity to ask questions and understood the discharge instructions. Discharge instructions specifically effects, indications for sooner follow up or return to the emergency department, and the expected course of current diagnosis. Patient condition: Stable Discharge Plan Plan Patient Disposition: HOME (Self Care) Disposition Comment: Stable Prescriptions/Referrals Prescriptions/Med Rec: New cefuroxime axetil 500 mg tablet 500 mg PO BID 7 Days Qty: 14 0RF No Action mesalamine [Pentasa] 500 mg capsule, extended release 500 mg PO TID oxycodone-acetaminophen [Percocet] 10-325 mg tablet 1 tab PO Q6H MDD 6 tabs PRN (Reason: pain) Qty: 30 0RF Rx Instructions: pt underwent laparotomy surgery on 08/18/24 prednisone 5 mg tablets,dose pack 5 mg PO QDAY Qty: 48 0RF azathioprine 50 mg tablet 50 mg PO BID Qty: 60 3RF Referrals: No Primary/Family,Physician [Primary Care Provider] - In 1 week Problem List Clinical Impression: Postoperative examination Patient/Caregiver Discharge Instructions Additional Instructions: Please follow-up with PCP within 24-48 hours and return immediately if symptoms worsen. Follow-up with Dr. Estrella. Print Language: Mongolian Stand Alone Forms: Patient Portal Info Letter SUMA/JT Supervising Physician SUMA/JT Supervising Physician: Dr. Morales
== END 2024-09-02 02:32 | disposition home or self-care (01) ==
PROVIDERS: Physician Assistant; Emergency Provider Emergency Medicine
DX: K91.89 Other postprocedural complications and disorders of digestive system (principal); K56.7 Ileus, unspecified; K50.90 Crohn's disease, unspecified, without complications; Z93.2 Ileostomy status; Z48.01 Encounter for change or removal of surgical wound dressing
CPT/HCPCS: 36415; 74177; 80053; 83605; 84145; 85025; 99285; A4649; Q9967; A9270

== ENCOUNTER 2024-09-08 13:02 | Outpatient (AMB) | payer MEDICAID, SELFPAY ==
--- NOTE | 2024-09-08 13:11 | PD.GSCLVISIT ---
Vital Signs - [facility] 09/08/24 13:12 Height 1.91 m Height Method Stated Weight 71.923 kg Weight Measurement Method Standing Scale BMI 19.7 BP 135/84 H Blood Pressure Source Automatic Cuff Blood Pressure Location Left Upper Arm Position Sitting Respiration 19 Pulse 101 H Pulse Source Monitor Temp 98.1 F Temp Source Temporal Artery Scan Pulse Oximetry (%) 97 Oxygen Delivery Method Room Air Med/Allergies Allergies & Medications Allergies No Known Allergies Allergy (Verified 09/08/24 13:12) Medication Reconciliation prednisone 5 mg tablets in a dose pack 5 mg PO QDAY #48 tabs 07/16/24 [Rx Confirmed 09/08/24] azathioprine 50 mg tablet 50 mg PO BID #60 tabs 08/08/24 [Rx Confirmed 09/08/24] mesalamine 500 mg capsule,extended release (Pentasa) 500 mg PO TID 08/17/24 [History Confirmed 09/08/24] oxycodone-acetaminophen 10 mg-325 mg tablet (Percocet) 1 tab PO Q6H PRN pain #30 tabs 08/25/24 [Rx Confirmed 09/08/24] cefuroxime axetil 500 mg tablet 500 mg PO BID 7 days #14 tabs 09/02/24 [Rx Confirmed 09/08/24] MA Intake Visit Data Collection New Patient or Established: Established Patient (seen at [facility] within 3 years) Seen by Clinical Staff ONLY (RN/MA): No Pain Present Currently: No 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: No PCP or OBGYN visit in last 3 months: Yes Hx Now: No Do You Feel Safe at Home: Yes Authorities Contacted: N/A Smoking Status Smoking Status: Never smoker Immunization / Flu Flu Vaccine in the Last 12 Months: No Flu Vaccine Exclusion Criteria: No Exclusion Criteria Past Medical History Past Medical History NEUROLOGIC: Negative Neurological Disorders or Seizures CARDIAC: Negative Cardiac Disorders, Congestive Heart Failure or Hypertension RESPIRATORY: Negative Chronic Obstructive Pulmonary Disease (COPD) or Asthma GASTROINTESTINAL: Positive Gastrointestinal Disorders, Gall Bladder Disease (gallstones), Crohn's Disease (Dx may 2024) and Obstructive Bowel (sbo before); Negative Hepatitis, Ulcerative Colitis, Diverticulitis, Hemorrhoids or Gastroesophageal Reflux Disease GENITOURINARY: Negative Genitourinary Disorders or Renal Disease ENDOCRINE: Negative Endocrine Disorders, Diabetes Mellitus Type 1 or Diabetes Mellitus Type 2 HEMATOLOGIC: Negative Blood Disorders or Sickle Cell Disease PSYCHO/SOCIAL: Positive Attention Deficit Hyperactivity Disorder OTHER HISTORY: Positive Hospitalization (surgery); Negative Autoimmune Disease, Shingles, Falls, Blood Transfusions, Blood Transfusion Reaction, Anesthesia Reactions, Chemotherapy, Hepatitis C or Cancer Family History FAMILY HISTORY: Positive Family Surgery; Negative Family Psychiatric Problems, Family Respiratory Disorders, Family Cardiac Disorders, Family Gastrointestinal Problems, Family Cancer or Family Anesthesia Reaction Surgical History SURGICAL: Positive Abdominal Surgery (this admission-laparotony,reversal of ileostomy 08/18/24) and Bowel Surgery (bowel resection with ileostomy) Social History SMOKING STATUS: Smoking status: Never smoker SECOND HAND EXPOSURE: second hand exposure: No ALCOHOL: Alcohol Intake: Never ALCOHOL FREQUENCY: Alcohol Intake Frequency: holidays/special occasions only HOUSING: Housing: House LIVES WITH: Lives With: Significant Other HPI HPI Narrative 23M diagnosed with Crohn's 05/2024 after presenting with pneumoperitoneum, s/p emergent ex lap, small bowel resection followed by end ileostomy 05/30, followed by ileostomy reversal with cholecystectomy and appendectomy 08/2024, here for planned follow up. Pt presented to ER for abdominal pain 09/02, it was overnight and I received one phone call which I did not hear but he was found to have a hematoma at the former ileostomy site, was sent home with antibiotics. Pt reports he feels well overall, is still having pain to that area but is not currently needing any pain medications. He denies any nausea/vomiting, is eating well but is having frequent BMs with urgency. He is awaiting GI referral as he is unable to see Dr Andrews for insurance reasons ROS Review of Systems Systems Reviewed: All systems reviewed, normal except as documented Objective/Exam General General Appearance: alert, cooperative and well groomed Resp Respiratory exam: Absent respiratory distress Abdominal Abdominal exam: Present soft and incision (midline incision and R stoma incisions with beefy red granulation tissue, no surrounding erythema, no fluctuance or tenderness. The stoma site is indurated but not erythematous); Absent distention or tenderness Assessment & Plan Diagnosis / Problem List (1) Postoperative examination: Status: Acute Assessment & Plan: 23M diagnosed with Crohn's 05/2024 after presenting with pneumoperitoneum, s/p emergent ex lap, small bowel resection followed by end ileostomy 05/30, followed by ileostomy reversal with cholecystectomy and appendectomy 08/2024, here for planned follow up. Pt is recovering well overall, will follow up in 2 weeks Office Procedures GNS Level of Care Nursing/Assessment Patient Status: Established Patient Nursing Assessment/Reassesment: Medication Reconciliation, Update PMH in EMR and Vital Signs Coordination of Care: Complex Care and Chronic Disease 1-5, Consent,records obtained, informed consent, Education Simp Pt/Fam, Results/Orders obtained and Staff clarify orders Established Patient Charge Established Patient Point Assignment: 90 Established Patient Point Charge: EP Level 3 (80-115) Patient Portal Questionaires Social History Living Situation History Housing: House Housing Other:: Patient resides with significant other. Tobacco History Smoking Status: Never smoker Second Hand Smoke Exposure: No Alcohol History Alcohol Intake: Never Alcohol Intake Frequency: holidays/special occasions only Domestic Abuse History Do You Feel Safe at Home: Yes Review of Systems Report any current symptoms Only answer those that you have currently: Past Medical History Past Medical History Have you ever been diagnosed with any of the following: Neurological Problems Seizures: No Cardiology Problems Congestive Heart Failure: No Hypertension: No Respiratory Problems Chronic Obstructive Pulmonary Disease (COPD): No Asthma: No Stomache/Intestinal Problems Hepatitis: No Gall Bladder Disease: Yes (gallstones) Ulcerative Colitis: No Diverticulitis: No Crohn's Disease: Yes (Dx may 2024) Obstructive Bowel: Yes (sbo before) Hemorrhoids: No Gastroesophageal Reflux Disease: No Genital/Urinary Problems Renal Disease: No Endocrine Problems Diabetes Mellitus Type 1: No Diabetes Mellitus Type 2: No Blood Problems Sickle Cell Disease: No Psychologic Problems Attention Deficit Hyperactivity Disorder: Yes Other Problems Hospitalization: Yes (surgery) Autoimmune Disease: No Shingles: No Falls: No Blood Transfusions: No Blood Transfusion Reaction: No Anesthesia Reactions: No Chemotherapy: No Hepatitis C: No Cancer: No
[2024-09-08 13:12] VITALS: BP 135/84; PULSE 101; RESP 19; TEMP 36.7; O2SAT 97; BMI 19.7
== END 2024-09-08 13:26 | disposition home or self-care (01) ==
LOC: HODSRG 13:02
PROVIDERS: Supervising Provider Surgery; Visit Provider Surgery
DX: Z48.815 Encounter for surgical aftercare following surgery on the digestive system (principal)
CPT/HCPCS: 99213; G0463

== ENCOUNTER 2024-09-13 00:32 | Emergency (ER) | payer MEDICAID, SELFPAY ==
[2024-09-13] VITALS (10 sets, daily range): BP systolic 124–142; BP diastolic 73–91; PULSE 83–99; RESP 15–18; TEMP 36.6–36.8; O2SAT 97–100; BMI 19.7
--- NOTE | 2024-09-13 00:50 | PD.EDRME ---
Rapid Medical Screening Exam E Arrival date/time: 09/13/24 00:32 23-year-old male presents emergency department complaining of bleeding incision status post ileostomy reversal on 08/18/2024. Chief Complaint: Abdominal Pain Vital signs: Vital Signs Temperature 98.2 F 09/13/24 00:40 Pulse Rate 99 09/13/24 00:40 Respiratory Rate 18 09/13/24 00:40 Blood Pressure 138/89 H 09/13/24 00:40 Pulse Oximetry (%) 100 09/13/24 00:40 Oxygen Delivery Method Room Air 09/13/24 00:40 Vital signs reviewed by provider: Yes
[2024-09-13 01:22] LABS: Alanine Aminotransferase 18 U/L (10-49); Albumin, Serum 4.7 gm/dL (3.5-5.0); Albumin/Globulin Ratio 1.3 (1.2-2.2); Alkaline Phosphatase 72 U/L (46-116); Anion Gap 7 (7-16); Aspartate Amino Transferase 17 U/L (0-34); BUN/Creatinine Ratio 27 Ratio (12-20); Bilirubin,Total 0.2 mg/dL (0.3-1.2); Blood Urea Nitrogen 19 mg/dL (9-23); Calcium 10.1 mg/dL (8.3-10.6); Calcium (Corrected) 10.1 mg/dL (8.5-10.1); Carbon Dioxide 29.5 mMol/L (20.0-31.0); Chloride 104 mMol/L (98-107); Creatinine (Component) 0.7 mg/dL (0.6-1.3); Estimated Creatinine Clearance 163.5 mL/min (>60); Globulin 3.6 gm/dL (2.3-3.5); Glucose 102 mg/dL (74-106); Lipase 70 U/L (12-53); Osmolality,Calculated 281 (275-295); Potassium 4.1 mMol/L (3.4-5.1); Sodium 140 mMol/L (136-145); Total Protein 8.3 gm/dL (5.7-8.2); eGFR > 60 See Note
[2024-09-13 01:27] LABS: Basophils # (Auto) 0.1 Thou/mm3 (0.0-0.2); Basophils % (Auto) 1 % (0-2.5); Eosinophils # (Auto) 0.3 Thou/mm3 (0.0-0.5); Eosinophils % (Auto) 3 % (0-10); Hematocrit 36.1 % (41.0-53.0); Hemoglobin 11.5 g/dL (13.5-16.0); Immature Granulocytes % (Auto) 1 % (0-0); Immature Granulocytes Auto 0.14 Thou/mm3 (0.00-0.00); Lymphocytes # (Auto) 2.2 Thou/mm3 (1.0-4.8); Lymphocytes % (Auto) 21 % (10-50); Mean Corpuscular HGB Conc 31.9 g/dl (31.0-37.0); Mean Corpuscular Hemoglobin 27.8 pg (25.0-35.0); Mean Corpuscular Volume 87 fL (80-100); Monocytes # (Auto) 1.2 Thou/mm3 (0.0-0.8); Monocytes % (Auto) 11 % (0-12); Neutrophils # (Auto) 6.3 Thou/mm3 (1.8-7.7); Neutrophils % (Auto) 62 % (37-80); Nucleated Red Blood Cell % 0 /100 WBC (0); Platelet Count 548 Thou/mm3 (140-440); RDW Standard Deviation 48.5 fL (35.1-43.9); Red Blood Count 4.14 Miln/mm3 (4.50-5.90); White Blood Count 10.2 Thou/mm3 (3.8-10.6)
[2024-09-13 01:35] LABS: Partial Thromboplastin Time 29.1 Seconds (22.0-36.0); Prothrombin Time 10.9 Seconds (9.0-12.2)
--- NOTE | 2024-09-13 01:41 | PD.EDABDPN ---
ED Abdominal Pain RME/HPI General Chief Complaint: Abdominal Pain Stated complaint: BLOOD FROM OLD OSTOMY SITE Arrival date/time: 09/13/24 00:32 RME / HPI RME / HPI narrative: 09/13/24 00:32 23-year-old male presents emergency department complaining of bleeding incision status post ileostomy reversal on 08/18/2024. ------- Dr. Paris?s Main ED Evaluation: 23yo male with a history of Crohn's disease, ostomy reversal 08/18/[address] Estrella presents to the ED for a chief complaint of blood from his old ostomy site. Patient states he woke up at 0000 and noticed there was blood coming from his old ostomy site. He was concerned, so he came in for evaluation. He denies any N/V, abdominal pain or any other associated symptoms. No known allergies. Related Data Home Medications ?Medication ?Instructions ?Recorded ?Confirmed mesalamine 500 mg capsule,extended 500 mg PO TID 08/17/24 09/08/24 release (Pentasa) Previous Rx's ?Medication ?Instructions ?Recorded prednisone 5 mg tablets in a dose 5 mg PO QDAY #48 tabs 07/16/24 pack azathioprine 50 mg tablet 50 mg PO BID #60 tabs 08/08/24 oxycodone-acetaminophen 10 mg-325 1 tab PO Q6H PRN pain #30 tabs 08/25/24 mg tablet (Percocet) doxycycline monohydrate 100 mg 100 mg PO BID Postop abscess 10 09/13/24 capsule days #20 caps Allergies Allergy/AdvReac Type Severity Reaction Status Date / Time No Known Allergies Allergy Verified 09/13/24 00:34 Review of Systems Review of Systems Systems Reviewed: All systems reviewed, normal except as documented Past Medical History Past Medical History NEUROLOGIC: Negative Neurological Disorders or Seizures CARDIAC: Negative Cardiac Disorders, Congestive Heart Failure or Hypertension RESPIRATORY: Negative Chronic Obstructive Pulmonary Disease (COPD) or Asthma GASTROINTESTINAL: Positive Gastrointestinal Disorders, Gall Bladder Disease (gallstones), Crohn's Disease (Dx may 2024) and Obstructive Bowel (sbo before); Negative Hepatitis, Ulcerative Colitis, Diverticulitis, Hemorrhoids or Gastroesophageal Reflux Disease GENITOURINARY: Negative Genitourinary Disorders or Renal Disease MUSCULOSKELETAL: Negative Musculoskeletal Disorders ENDOCRINE: Negative Endocrine Disorders, Diabetes Mellitus Type 1 or Diabetes Mellitus Type 2 HEMATOLOGIC: Negative Blood Disorders or Sickle Cell Disease PSYCHO/SOCIAL: Positive Attention Deficit Hyperactivity Disorder OTHER HISTORY: Positive Hospitalization (surgery); Negative Autoimmune Disease, Shingles, Falls, Blood Transfusions, Blood Transfusion Reaction, Anesthesia Reactions, Chemotherapy, Hepatitis C or Cancer Family History FAMILY HISTORY: Positive Family Surgery; Negative Family Psychiatric Problems, Family Respiratory Disorders, Family Cardiac Disorders, Family Gastrointestinal Problems, Family Cancer or Family Anesthesia Reaction Surgical History SURGICAL: Positive Abdominal Surgery (this admission-laparotony,reversal of ileostomy 08/18/24) and Bowel Surgery (bowel resection with ileostomy) Social History SMOKING STATUS: Never smoker SECOND HAND EXPOSURE: No ED Exam Narrative Physical exam: GENERAL APPEARANCE: alert and oriented x 4, well-developed, well-nourished, no acute distress VITALS: All vitals were reviewed and the pulse ox is 98% on room air, which is normal according to my interpretation. HEENT: Normocephalic, atraumatic; pupils equal, round, reactive to light; EOMI; mucous membranes pink, moist; oropharynx clear NECK: Supple LUNGS: CTABL; no wheezes, no rales, no rhonchi HEART: Regular rate, regular rhythm; normal S1, S2; no murmurs ABDOMEN: non distended; normal BS; soft, no tenderness, no guarding, no rebound; no masses, no organomegaly, no hernia; 3 cm surgical wound with good granulation tissue and a tiny area of dark clots and perulent foul-smelling drainage at RLQ; well-healing surgical wound at the midline from the umbilicus to the suprapubic area that is granulating well without any surrounding erythema BACK: no CVA tenderness EXTREMITIES: atraumatic; no edema NEUROLOGIC: awake; alert and oriented x4; cranial nerves II-XII grossly intact; no focal sensory or motor deficits PSYCHIATRIC: appropriate mood and affect SKIN: warm, dry, normal color; no rashes Course Quality Measures none Orders Category Date Time Status CT Screening NOW Care 09/13/24 02:[address] abdomen pelvis w con Stat Exams 09/13/24 02:48 Completed CBC Stat Lab 09/13/24 00:53 Completed CMP [Comprehensive Metabolic Panel] Stat Lab 09/13/24 00:53 Completed Lipase Stat Lab 09/13/24 00:53 Completed PT [Prothrombin Time with INR] Stat Lab 09/13/24 00:53 Completed PTT [Partial Thromboplastin Time] Stat Lab 09/13/24 00:53 Completed Vital Signs Vital signs: Vital Signs Temperature 98.2 F 09/13/24 00:40 Pulse Rate 99 09/13/24 00:40 Respiratory Rate 18 09/13/24 00:40 Blood Pressure 138/89 H 09/13/24 00:40 Pulse Oximetry (%) 100 09/13/24 00:40 Oxygen Delivery Method Room Air 09/13/24 00:40 Abdominal Pain MDM MDM Narrative MDM Narrative:: Scribe Attestation: 09/13/24 - Myra, Dianna Morrissey am scribing for and in the presence of Dr. Paris. Patient data External records reviewed:: [facility] previous records (Per chart review, patient was seen here on 09/02/24 for a postop examination.) Clinical information provided by:: patient Social determinants that could affect healthcare access:: none Patient has the following chronic illnesses:: Crohn's disease, small bowel resection followed by end ileostomy 05/30 How is presenting disease/condition affected by chronic disease/condition?: caused by Evaluation data The following diagnostics were reviewed and interpreted by me:: lab results and radiology exam(s) Lab and/or radiology exams considered but not ordered:: none Interpretation Summary: CMP is normal, Lipase is slightly elevated at 70, PTT is normal, PT and INR are normal, according to my interpretation. ----- Telerad Preliminary Report Draft Patient: CATHRYN ARREOLA [employer] Record#: [id number] Birthdate: 2000 Age/Sex: 23 / M Location: [facility] Attending Dr: Ordering Physician: Date of Service: Procedure(s): Accession Number(s): cc: ~ CT scan of the abdomen and pelvis with intravenous contrast (axial sections with sagittal and coronal reformats) September 13, 2024 at 0306 hours Clinical History: Right abdominal ostomy site draining. Comparison: Compared with the prior study dated September 01, 2024. Findings: Bilateral lower lobes atelectasis. The liver, pancreas, spleen, kidneys and adrenals are unremarkable. Status post cholecystectomy. Pneumobilia. No biliary duct dilation. Fecal loading. No evidence of bowel obstruction. No evidence of appendicitis. There is no mesenteric or retroperitoneal adenopathy. The urinary bladder is unremarkable.There is no free fluid or free air. The osseous structures are unremarkable. Collection in the right anterior abdominal wall subcutaneous fat measures 3.3 x 5.9 cm. Status post bowel resection. Impression: 1. Right anterior abdominal wall subcutaneous fat abscess. 2. Pneumobilia, consider cholangitis in the differential diagnosis. 3. Fecal loading. Discussion Details: Results verbally communicated to : Dr. Paris at 03:56 AM 09/13/2024 Report Electronically Signed By: Moses Edwards 09/13/2024 3:58:31 AM [EST] Medications / Prescriptions Medications or Prescriptions considered but not ordered:: none Medication administrations:: see above, if any Consultations Consultation(s) initiated? (list below): No Diagnosis Differential diagnosis abdominal pain: other (intra-abdominal abscess, subcutaneous abscess, surgical complication, failure of anastomosis) Most likely diagnosis given after review of the tests above:: see below Admission Indicated Admission indicated?: not indicated Admission Request Was there a request for admission?: No Disposition Plan Disposition Plan: Discharge Discharge Attestation Discharge Attestation: The patient and all family members were given an opportunity to ask questions and understood the discharge instructions. Discharge instructions specifically effects, indications for sooner follow up or return to the emergency department, and the expected course of current diagnosis. Patient condition: Stable Discharge Plan Plan Patient Disposition: HOME (Self Care) Disposition Comment: Stable for discharge Patient condition on transfer: Stable Prescriptions/Referrals Prescriptions/Med Rec: New doxycycline monohydrate 100 mg capsule 100 mg PO BID 10 Days Qty: 20 0RF No Action mesalamine [Pentasa] 500 mg capsule, extended release 500 mg PO TID oxycodone-acetaminophen [Percocet] 10-325 mg tablet 1 tab PO Q6H MDD 6 tabs PRN (Reason: pain) Qty: 30 0RF Rx Instructions: pt underwent laparotomy surgery on 08/18/24 prednisone 5 mg tablets,dose pack 5 mg PO QDAY Qty: 48 0RF azathioprine 50 mg tablet 50 mg PO BID Qty: 60 3RF Referrals: Roula Estrella MD [Physician] - In 1 week No Primary/Family,Physician [Primary Care Provider] - In 1 week Problem List Clinical Impression: Post-operative wound abscess, Subcutaneous abscess Patient/Caregiver Discharge Instructions Discharge Activity: activity as tolerated Education Materials: ED Abscess Antibiotic ..., ED Cellulitis, ED Post Op Wound Check, Infection Additional Instructions: Please return to the emergency department if you have any worsening whatsoever and we will help you. This includes fevers, chills and shakes. This includes abdominal pain, vomiting, nausea. Or if you have reddening of the skin over or surrounding the wound. You should keep your appointment with Dr. Estrella on the . Be sure to mention that you came to the emergency department. Please follow-up with your primary care doctor within the next several days I have called in a prescription for antibiotics. It is called doxycycline and you should take that twice a day for the entire 10 days. Print Language: Tajik Stand Alone Forms: [employer] Award Info., Patient Portal Info Letter
--- NOTE | 2024-09-13 02:48 | XR_ITS ---
Examination: CT abdomen with intravenous contrast CT pelvis with intravenous contrast 2-D coronal reconstructions 2-D sagittal reconstructions Date and time of exam:September 13, 2024 0306 hrs. Comparison September 01, 2024 Indications: Blood coming from the patient's ostomy site with abdominal pain today. CTDI: vol (mGy) 6.14 DLP: (mGycm) 376 Technique: Multiple axial sections of the abdomen and pelvis have been obtained. 64 slice high-resolution scanner used. 3 mm axial sections have been obtained, post intravenous injection 60 cc [id number] 2-D sagittal, coronal reconstructions obtained. Low dose protocols were performed. One or more of the following dose reduction techniques were used; automated exposure control, adjustment of the mA and/or KV according to patient size, use of iterative reconstruction technique. Findings: Pneumobilia No solid liver lesion Spleen not enlarged No pancreatic or adrenal mass No renal or ureteral calculi, no hydronephrosis Subcutaneous mass in the right anterior abdominal wall 3.3 x 6 cm No bowel obstruction Absent appendix No diverticulitis Intact urinary bladder No prostatomegaly Impression: Subcutaneous fluid containing mass right anterior abdominal wall 3.3 x 6 cm, consider abscess Pneumobilia, recommend hepatobiliary sonography follow-up
--- NOTE | 2024-09-13 03:59 | PRELIM_ITS ---
CT scan of the abdomen and pelvis with intravenous contrast (axial sections with sagittal and coronal reformats) September 13, 2024 at 0306 hoursClinical History: Right abdominal ostomy site draining.Comp vic: Compared with the prior study dated September 01, 2024.Findings:Bilateral lower lobes atelecta sis.The liver, pancreas, spleen, kidneys and adrenals are unremarkable.Status post cholecystectomy. P neumobilia. No biliary duct dilation.Fecal loading. No evidence of bowel obstruction. No evidence of appendicitis. There is no mesenteric or retroperitoneal adenopathy.The urinary bladder is unremarkabl e.There is no free fluid or free air.The osseous structures are unremarkable.Collection in the right anterior abdominal wall subcutaneous fat measures 3.3 x 5.9 cm.Status post bowel resection.Impression :1. Right anterior abdominal wall subcutaneous fat abscess.2. Pneumobilia, consider cholangitis in th e differential diagnosis.3. Fecal loading.Discussion Details: Results verbally communicated to : Dr. Paris at 03:56 AM 09/13/2024 Report Electronically Signed By: Moses Edwards 09/13/2024 3:58:31 AM [EST]
== END 2024-09-13 06:02 | disposition home or self-care (01) ==
PROVIDERS: Emergency Provider Emergency Medicine
DX: T81.41XA Infection following a procedure, superficial incisional surgical site, initial encounter (principal); L02.211 Cutaneous abscess of abdominal wall; K50.90 Crohn's disease, unspecified, without complications
CPT/HCPCS: 36415; 74177; 80053; 83690; 85025; 85610; 85730; 99285; A4649; Q9967

== ENCOUNTER → 2024-09-16 | Outpatient (CLI) | payer MEDICAID, SELFPAY | END | disposition home or self-care (01) | LOC: SWHD 13:10 | PROVIDERS: PCP Physician Assistant Medical; Referring Provider Physician Assistant Medical; Visit Provider Surgery | DX: T81.89XA Other complications of procedures, not elsewhere classified, initial encounter (principal); K50.90 Crohn's disease, unspecified, without complications; E86.0 Dehydration | CPT/HCPCS: 11042; A9270 ==

== ENCOUNTER 2024-09-22 13:53 | Outpatient (AMB) | payer MEDICAID, SELFPAY ==
[2024-09-22 14:01] VITALS: BP 126/73; PULSE 93; RESP 18; TEMP 36.6; O2SAT 98; BMI 21.1
--- NOTE | 2024-09-22 14:01 | PD.GSCLVISIT ---
Vital Signs - [facility] 09/22/24 14:01 Height 1.91 m Height Method Stated Weight 77.139 kg Weight Measurement Method Standing Scale BMI 21.1 BP 126/73 Blood Pressure Source Automatic Cuff Blood Pressure Location Left Upper Arm Position Sitting Respiration 18 Pulse 93 Pulse Source Monitor Temp 97.9 F Temp Source Temporal Artery Scan Pulse Oximetry (%) 98 Oxygen Delivery Method Room Air Med/Allergies Allergies & Medications Allergies No Known Allergies Allergy (Verified 09/22/24 14:02) Medication Reconciliation prednisone 5 mg tablets in a dose pack 5 mg PO QDAY #48 tabs 07/16/24 [Rx Confirmed 09/22/24] azathioprine 50 mg tablet 50 mg PO BID #60 tabs 08/08/24 [Rx Confirmed 09/22/24] mesalamine 500 mg capsule,extended release (Pentasa) 500 mg PO TID 08/17/24 [History Confirmed 09/22/24] oxycodone-acetaminophen 10 mg-325 mg tablet (Percocet) 1 tab PO Q6H PRN pain #30 tabs 08/25/24 [Rx Confirmed 09/22/24] doxycycline monohydrate 100 mg capsule 100 mg PO BID Postop abscess 10 days #20 caps 09/13/24 [Rx Confirmed 09/22/24] MA Intake Visit Data Collection New Patient or Established: Established Patient (seen at [facility] within 3 years) Seen by Clinical Staff ONLY (RN/MA): No Reason for Visit:: 2 WEEK FOLLOW UP Pain Present Currently: No 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 PCP or OBGYN visit in last 3 months: Yes Hx Now: No Do You Feel Safe at Home: Yes Authorities Contacted: N/A Smoking Status Smoking Status: Never smoker Immunization / Flu Flu Vaccine in the Last 12 Months: No Flu Vaccine Exclusion Criteria: No Exclusion Criteria Past Medical History Past Medical History NEUROLOGIC: Negative Neurological Disorders or Seizures CARDIAC: Negative Cardiac Disorders, Congestive Heart Failure or Hypertension RESPIRATORY: Negative Chronic Obstructive Pulmonary Disease (COPD) or Asthma GASTROINTESTINAL: Positive Gastrointestinal Disorders, Gall Bladder Disease, Crohn's Disease and Obstructive Bowel; Negative Hepatitis, Ulcerative Colitis, Diverticulitis, Hemorrhoids or Gastroesophageal Reflux Disease GENITOURINARY: Negative Genitourinary Disorders or Renal Disease ENDOCRINE: Negative Endocrine Disorders, Diabetes Mellitus Type 1 or Diabetes Mellitus Type 2 HEMATOLOGIC: Negative Blood Disorders or Sickle Cell Disease PSYCHO/SOCIAL: Positive Attention Deficit Hyperactivity Disorder OTHER HISTORY: Positive Hospitalization; Negative Autoimmune Disease, Shingles, Falls, Blood Transfusions, Blood Transfusion Reaction, Anesthesia Reactions, Chemotherapy, Hepatitis C or Cancer Family History FAMILY HISTORY: Positive Family Surgery; Negative Family Psychiatric Problems, Family Respiratory Disorders, Family Cardiac Disorders, Family Gastrointestinal Problems, Family Cancer or Family Anesthesia Reaction Surgical History SURGICAL: Positive Abdominal Surgery and Bowel Surgery (colostomy placement and reversal) Social History SMOKING STATUS: Smoking status: Never smoker SECOND HAND EXPOSURE: second hand exposure: No ALCOHOL: Alcohol Intake: Never ALCOHOL FREQUENCY: Alcohol Intake Frequency: holidays/special occasions only HOUSING: Housing: House LIVES WITH: Lives With: Significant Other HPI HPI Narrative 23M diagnosed with Crohn's 05/2024 after presenting with pneumoperitoneum, s/p emergent ex lap, small bowel resection followed by end ileostomy 05/30, followed by ileostomy reversal with cholecystectomy and appendectomy 08/2024, here for planned follow up. Last week pt went to ER due to drainage from ileostomy site; CT showed an abscess and pt states hes been having purulent drainage but it has slowed down. He still feels his diarrhea is worsening and is awaiting GI referral. His next PCP appt is 10/03 ROS Review of Systems Systems Reviewed: All systems reviewed, normal except as documented Objective/Exam General General Appearance: alert, cooperative and well groomed Resp Respiratory exam: Absent respiratory distress Abdominal Abdominal exam: Present soft and incision (R ileostomy site with minimal purulent drainage, no surrounding erythema, beefy red granulation tissue. Superior aspect of midline incision with minimal purulent drainage, beefy red granulation tissue); Absent distention or tenderness Assessment & Plan Diagnosis / Problem List (1) Crohn's disease of ileum with complication: Status: Acute Assessment & Plan: 23M diagnosed with Crohn's 05/2024 after presenting with pneumoperitoneum, s/p emergent ex lap, small bowel resection followed by end ileostomy 05/30, followed by ileostomy reversal with cholecystectomy and appendectomy 08/2024, here for planned follow up, recovering well overall Plan: Follow up next month Office Procedures GNS Level of Care Nursing/Assessment Patient Status: Established Patient Nursing Assessment/Reassesment: Medication Reconciliation, Update PMH in EMR and Vital Signs Coordination of Care: Complex Care and Chronic Disease 1-5, Consent,records obtained, informed consent, Education Simp Pt/Fam, Results/Orders obtained and Staff clarify orders Established Patient Charge Established Patient Point Assignment: 90 Established Patient Point Charge: Level 3 (80-115) Patient Portal Questionaires Social History Living Situation History Housing: House Housing Other:: Patient resides with significant other. Tobacco History Smoking Status: Never smoker Second Hand Smoke Exposure: No Alcohol History Alcohol Intake: Never Alcohol Intake Frequency: holidays/special occasions only Domestic Abuse History Do You Feel Safe at Home: Yes Review of Systems Report any current symptoms Only answer those that you have currently: Past Medical History Past Medical History Have you ever been diagnosed with any of the following: Neurological Problems Seizures: No Cardiology Problems Congestive Heart Failure: No Hypertension: No Respiratory Problems Chronic Obstructive Pulmonary Disease (COPD): No Asthma: No Stomache/Intestinal Problems Hepatitis: No Gall Bladder Disease: Yes Ulcerative Colitis: No Diverticulitis: No Crohn's Disease: Yes Obstructive Bowel: Yes Hemorrhoids: No Gastroesophageal Reflux Disease: No Genital/Urinary Problems Renal Disease: No Endocrine Problems Diabetes Mellitus Type 1: No Diabetes Mellitus Type 2: No Blood Problems Sickle Cell Disease: No Psychologic Problems Attention Deficit Hyperactivity Disorder: Yes Other Problems Hospitalization: Yes Autoimmune Disease: No Shingles: No Falls: No Blood Transfusions: No Blood Transfusion Reaction: No Anesthesia Reactions: No Chemotherapy: No Hepatitis C: No Cancer: No
== END 2024-09-22 14:19 | disposition home or self-care (01) ==
LOC: HODSRG 13:53
PROVIDERS: Supervising Provider Surgery; Visit Provider Surgery
DX: Z48.815 Encounter for surgical aftercare following surgery on the digestive system (principal)
CPT/HCPCS: 99213; G0463

== ENCOUNTER 2024-10-10 12:54 | Outpatient (AMB) | payer MEDICAID, SELFPAY ==
[2024-10-10 13:09] VITALS: BP 134/82; PULSE 99; RESP 18; TEMP 36.8; O2SAT 97; BMI 22.1
--- NOTE | 2024-10-10 13:09 | GSCOFFNT_ITS ---
Vital Signs - [facility] 10/10/24 13:09 Height 1.91 m Height Method Stated Weight 80.768 kg Weight Measurement Method Standing Scale BMI 22.1 BP 134/82 H Blood Pressure Source Automatic Cuff Blood Pressure Location Left Upper Arm Position Sitting Respiration 18 Pulse 99 Pulse Source Monitor Temp 98.2 F Temp Source Temporal Artery Scan Pulse Oximetry (%) 97 Oxygen Delivery Method Room Air Med/Allergies Allergies & Medications Allergies No Known Allergies Allergy (Verified 10/10/24 13:10) Medication Reconciliation prednisone 5 mg tablets in a dose pack 5 mg PO QDAY #48 tabs 07/16/24 [Rx Confirmed 10/10/24] azathioprine 50 mg tablet 50 mg PO BID #60 tabs 08/08/24 [Rx Confirmed 10/10/24] mesalamine 500 mg capsule,extended release (Pentasa) 500 mg PO TID 08/17/24 [History Confirmed 10/10/24] oxycodone-acetaminophen 10 mg-325 mg tablet (Percocet) 1 tab PO Q6H PRN pain #30 tabs 08/25/24 [Rx Confirmed 10/10/24] MA Intake Visit Data Collection New Patient or Established: Established Patient (seen at [facility] within 3 years) Seen by Clinical Staff ONLY (RN/MA): No Reason for Visit:: FOLLOW UP Pain Present Currently: No 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 PCP or OBGYN visit in last 3 months: Yes Hx Now: No Do You Feel Safe at Home: Yes Authorities Contacted: N/A Smoking Status Smoking Status: Never smoker Immunization / Flu Flu Vaccine in the Last 12 Months: No Flu Vaccine Exclusion Criteria: No Exclusion Criteria Past Medical History Past Medical History NEUROLOGIC: Negative Neurological Disorders or Seizures CARDIAC: Negative Cardiac Disorders, Congestive Heart Failure or Hypertension RESPIRATORY: Negative Chronic Obstructive Pulmonary Disease (COPD) or Asthma GASTROINTESTINAL: Positive Gastrointestinal Disorders, Gall Bladder Disease, Crohn's Disease and Obstructive Bowel; Negative Hepatitis, Ulcerative Colitis, Diverticulitis, Hemorrhoids or Gastroesophageal Reflux Disease GENITOURINARY: Negative Genitourinary Disorders or Renal Disease ENDOCRINE: Negative Endocrine Disorders, Diabetes Mellitus Type 1 or Diabetes Mellitus Type 2 HEMATOLOGIC: Negative Blood Disorders or Sickle Cell Disease PSYCHO/SOCIAL: Positive Attention Deficit Hyperactivity Disorder OTHER HISTORY: Positive Hospitalization; Negative Autoimmune Disease, Shingles, Falls, Blood Transfusions, Blood Transfusion Reaction, Anesthesia Reactions, Chemotherapy, Hepatitis C or Cancer Family History FAMILY HISTORY: Positive Family Surgery; Negative Family Psychiatric Problems, Family Respiratory Disorders, Family Cardiac Disorders, Family Gastrointestinal Problems, Family Cancer or Family Anesthesia Reaction Surgical History SURGICAL: Positive Abdominal Surgery and Bowel Surgery (colostomy placement and reversal) Social History SMOKING STATUS: Smoking status: Never smoker SECOND HAND EXPOSURE: second hand exposure: No ALCOHOL: Alcohol Intake: Never ALCOHOL FREQUENCY: Alcohol Intake Frequency: holidays/special occasions only HOUSING: Housing: House LIVES WITH: Lives With: Significant Other HPI HPI Narrative 23M diagnosed with Crohn's 05/2024 after presenting with pneumoperitoneum, s/p emergent ex lap, small bowel resection followed by end ileostomy 05/30, followed by ileostomy reversal with cholecystectomy and appendectomy 08/2024, here for planned follow up. Pt reports feeling well overall with no pain, he continues to dress his wounds daily and has minimal drainage. He decided to stop taking his medications and feels that his BMs have improved since then, he now goes 4-5 times per day and his stools do not contain blood. After last visit I had sent a referral to [facility], pt has not yet heard back ROS Review of Systems Systems Reviewed: All systems reviewed, normal except as documented Objective/Exam General General Appearance: alert, cooperative and well groomed Resp Respiratory exam: Absent respiratory distress Abdominal Abdominal exam: Present soft and incision (midline incision healing with no surrounding erythema. Former ostomy site with beefy red granulation tissue, no sign of hernia, no surrounding erythema); Absent distention, tenderness or hernia Assessment & Plan Diagnosis / Problem List (1) Crohn's disease of ileum with complication: Status: Acute Assessment & Plan: 23M diagnosed with Crohn's 05/2024 after presenting with pneumoperitoneum, s/p emergent ex lap, small bowel resection followed by end ileostomy 05/30, followed by ileostomy reversal with cholecystectomy and appendectomy 08/2024, here for planned follow up, recovering well overall Plan: Contact info for [facility] given F/u in 4 weeks Orders: Orders Silver nitrate applicator topical stick Today Office Procedures GNS Level of Care Nursing/Assessment Patient Status: Established Patient Nursing Assessment/Reassesment: Medication Reconciliation, Update PMH in EMR and Vital Signs Coordination of Care: Complex Care and Chronic Disease 1-5, Consent,records obtained, informed consent, Education Simp Pt/Fam, Results/Orders obtained and Staff clarify orders Established Patient Charge Established Patient Point Assignment: 90 Established Patient Point Charge: Level 3 (80-115) Patient Portal Questionaires Social History Living Situation History Housing: House Housing Other:: Patient resides with significant other. Tobacco History Smoking Status: Never smoker Second Hand Smoke Exposure: No Alcohol History Alcohol Intake: Never Alcohol Intake Frequency: holidays/special occasions only Domestic Abuse History Do You Feel Safe at Home: Yes Review of Systems Report any current symptoms Only answer those that you have currently: Past Medical History Past Medical History Have you ever been diagnosed with any of the following: Neurological Problems Seizures: No Cardiology Problems Congestive Heart Failure: No Hypertension: No Respiratory Problems Chronic Obstructive Pulmonary Disease (COPD): No Asthma: No Stomache/Intestinal Problems Hepatitis: No Gall Bladder Disease: Yes Ulcerative Colitis: No Diverticulitis: No Crohn's Disease: Yes Obstructive Bowel: Yes Hemorrhoids: No Gastroesophageal Reflux Disease: No Genital/Urinary Problems Renal Disease: No Endocrine Problems Diabetes Mellitus Type 1: No Diabetes Mellitus Type 2: No Blood Problems Sickle Cell Disease: No Psychologic Problems Attention Deficit Hyperactivity Disorder: Yes Other Problems Hospitalization: Yes Autoimmune Disease: No Shingles: No Falls: No Blood Transfusions: No Blood Transfusion Reaction: No Anesthesia Reactions: No Chemotherapy: No Hepatitis C: No Cancer: No
== END 2024-10-10 13:23 | disposition home or self-care (01) ==
LOC: HODSRG 12:54
PROVIDERS: PCP Physician Assistant Medical; Referring Provider Physician Assistant Medical; Supervising Provider Surgery; Visit Provider Surgery
DX: Z48.815 Encounter for surgical aftercare following surgery on the digestive system (principal)
CPT/HCPCS: 99213; G0463

== ENCOUNTER 2024-11-14 13:13 | Outpatient (AMB) | payer MEDICAID, SELFPAY ==
[2024-11-14 13:22] VITALS: BP 119/80; PULSE 79; RESP 18; TEMP 36.4; O2SAT 98; BMI 22.8
--- NOTE | 2024-11-14 13:22 | PD.GSCLVISIT ---
Vital Signs - [facility] 11/14/24 13:22 Height 1.91 m Height Method Stated Weight 83.206 kg Weight Measurement Method Standing Scale BMI 22.8 BP 119/80 Blood Pressure Source Automatic Cuff Blood Pressure Location Left Upper Arm Position Sitting Respiration 18 Pulse 79 Pulse Source Monitor Temp 97.5 F Temp Source Temporal Artery Scan Pulse Oximetry (%) 98 Oxygen Delivery Method Room Air Med/Allergies Allergies & Medications Allergies No Known Allergies Allergy (Verified 11/14/24 13:23) Medication Reconciliation prednisone 5 mg tablets in a dose pack 5 mg PO QDAY #48 tabs 07/16/24 [Rx Confirmed 11/14/24] azathioprine 50 mg tablet 50 mg PO BID #60 tabs 08/08/24 [Rx Confirmed 11/14/24] mesalamine 500 mg capsule,extended release (Pentasa) 500 mg PO TID 08/17/24 [History Confirmed 11/14/24] oxycodone-acetaminophen 10 mg-325 mg tablet (Percocet) 1 tab PO Q6H PRN pain #30 tabs 08/25/24 [Rx Confirmed 11/14/24] MA Intake Visit Data Collection New Patient or Established: Established Patient (seen at [facility] within 3 years) Seen by Clinical Staff ONLY (RN/MA): No Reason for Visit:: FOLLOW UP Pain Present Currently: No 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 PCP or OBGYN visit in last 3 months: Yes Hx Now: No Do You Feel Safe at Home: Yes Authorities Contacted: N/A Smoking Status Smoking Status: Never smoker Immunization / Flu Flu Vaccine in the Last 12 Months: No Flu Vaccine Exclusion Criteria: No Exclusion Criteria Past Medical History Past Medical History NEUROLOGIC: Negative Neurological Disorders or Seizures CARDIAC: Negative Cardiac Disorders, Congestive Heart Failure or Hypertension RESPIRATORY: Negative Chronic Obstructive Pulmonary Disease (COPD) or Asthma GASTROINTESTINAL: Positive Gastrointestinal Disorders, Gall Bladder Disease, Crohn's Disease and Obstructive Bowel; Negative Hepatitis, Ulcerative Colitis, Diverticulitis, Hemorrhoids or Gastroesophageal Reflux Disease GENITOURINARY: Negative Genitourinary Disorders or Renal Disease ENDOCRINE: Negative Endocrine Disorders, Diabetes Mellitus Type 1 or Diabetes Mellitus Type 2 HEMATOLOGIC: Negative Blood Disorders or Sickle Cell Disease PSYCHO/SOCIAL: Positive Attention Deficit Hyperactivity Disorder OTHER HISTORY: Positive Hospitalization; Negative Autoimmune Disease, Shingles, Falls, Blood Transfusions, Blood Transfusion Reaction, Anesthesia Reactions, Chemotherapy, Hepatitis C or Cancer Family History FAMILY HISTORY: Positive Family Surgery; Negative Family Psychiatric Problems, Family Respiratory Disorders, Family Cardiac Disorders, Family Gastrointestinal Problems, Family Cancer or Family Anesthesia Reaction Surgical History SURGICAL: Positive Abdominal Surgery and Bowel Surgery (colostomy placement and reversal) Social History SMOKING STATUS: Smoking status: Never smoker SECOND HAND EXPOSURE: second hand exposure: No ALCOHOL: Alcohol Intake: Never ALCOHOL FREQUENCY: Alcohol Intake Frequency: holidays/special occasions only HOUSING: Housing: House LIVES WITH: Lives With: Significant Other HPI HPI Narrative 23M diagnosed with Crohn's 05/2024 after presenting with pneumoperitoneum, s/p emergent ex lap, small bowel resection followed by end ileostomy 05/30, followed by ileostomy reversal with cholecystectomy and appendectomy 08/2024, here for planned follow up. Pt reports he has no drainage from abdominal wounds, and his pain is controlled however his diarrhea has worsened. I had referred him to [facility] at last visit but pt states they informed him they do not accept his insurance; he now has a new PCP and is awaiting another referral. He does state he is eating well and he is now approaching his normal weight ROS Review of Systems Systems Reviewed: All systems reviewed, normal except as documented Objective/Exam General General Appearance: alert, cooperative and well groomed Resp Respiratory exam: Absent respiratory distress Abdominal Abdominal exam: Present soft and scar (midline and R stoma scars healed, no evidence of hernia or infection); Absent distention or tenderness Assessment & Plan Diagnosis / Problem List (1) Crohn's disease of ileum with complication: Status: Acute Assessment & Plan: 23M diagnosed with Crohn's 05/2024 after presenting with pneumoperitoneum, s/p emergent ex lap, small bowel resection followed by end ileostomy 05/30, followed by ileostomy reversal with cholecystectomy and appendectomy 08/2024, recovering well from surgery but with ongoing Crohn's symptoms as he has unfortunately been unable to see a GI as an outpt Plan: Follow up PCP referral to GI Will extend disability benefits to March Office Procedures GNS Level of Care Nursing/Assessment Patient Status: Established Patient Nursing Assessment/Reassesment: Medication Reconciliation, Update PMH in EMR and Vital Signs Coordination of Care: Complex Care and Chronic Disease 1-5, Consent,records obtained, informed consent, Education Simp Pt/Fam and Staff clarify orders Established Patient Charge Established Patient Point Assignment: 85 Established Patient Point Charge: EP Level 3 (80-115) Patient Portal Questionaires Social History Living Situation History Housing: House Housing Other:: Patient resides with significant other. Tobacco History Smoking Status: Never smoker Second Hand Smoke Exposure: No Alcohol History Alcohol Intake: Never Alcohol Intake Frequency: holidays/special occasions only Domestic Abuse History Do You Feel Safe at Home: Yes Review of Systems Report any current symptoms Only answer those that you have currently: Past Medical History Past Medical History Have you ever been diagnosed with any of the following: Neurological Problems Seizures: No Cardiology Problems Congestive Heart Failure: No Hypertension: No Respiratory Problems Chronic Obstructive Pulmonary Disease (COPD): No Asthma: No Stomache/Intestinal Problems Hepatitis: No Gall Bladder Disease: Yes Ulcerative Colitis: No Diverticulitis: No Crohn's Disease: Yes Obstructive Bowel: Yes Hemorrhoids: No Gastroesophageal Reflux Disease: No Genital/Urinary Problems Renal Disease: No Endocrine Problems Diabetes Mellitus Type 1: No Diabetes Mellitus Type 2: No Blood Problems Sickle Cell Disease: No Psychologic Problems Attention Deficit Hyperactivity Disorder: Yes Other Problems Hospitalization: Yes Autoimmune Disease: No Shingles: No Falls: No Blood Transfusions: No Blood Transfusion Reaction: No Anesthesia Reactions: No Chemotherapy: No Hepatitis C: No Cancer: No
== END 2024-11-14 13:37 | disposition home or self-care (01) ==
LOC: HODSRG 13:13
PROVIDERS: PCP Physician Assistant Medical; Referring Provider Physician Assistant Medical; Supervising Provider Surgery; Visit Provider Surgery
DX: K50.019 Crohn's disease of small intestine with unspecified complications (principal); Z90.49 Acquired absence of other specified parts of digestive tract
CPT/HCPCS: 99213; G0463

== ENCOUNTER 2025-07-08 09:17 | Emergency (ER) | payer MEDICAID, SELFPAY ==
[2025-07-08 09:18] VITALS: BMI 25.7
[2025-07-08 09:47] VITALS: BP 132/73; PULSE 86; RESP 18; TEMP 37.2; O2SAT 99
--- NOTE | 2025-07-08 09:55 | PD.EDRME ---
Rapid Medical Screening Exam E Arrival date/time: 07/08/25 09:17 This is a 24-year-old male that comes into the emergency room with complaints of diffuse abdominal pain for the past 2 weeks. Patient states he has history of chron's disease. Patient states this morning he woke up and he had blood in his stool. I have greeted and performed a focused initial assessment of this patient. Initial appropriate labs ordered at this time. A comprehensive ED assessment and evaluation of the patient and analysis of all test and completion of medical decision making process will be conducted by additional ED provider. Chief Complaint: GI Bleed Time Seen by Provider: 07/08/25 09:44 Vital signs: Vital Signs Temperature 99.0 F 07/08/25 09:47 Pulse Rate 86 07/08/25 09:47 Respiratory Rate 18 07/08/25 09:47 Blood Pressure 132/73 H 07/08/25 09:47 Pulse Oximetry (%) 99 07/08/25 09:47 Oxygen Delivery Method Room Air 07/08/25 09:47 Exam: Alert and oriented, breathing even unlabored, diffuse abdominal pain Clinical Impression: Abdominal pain
[2025-07-08 10:44] LABS: Collection Type, Urine Voided
[2025-07-08 10:45] LABS: Basophils # (Auto) 0.0 Thou/mm3 (0.0-0.2); Basophils % (Auto) 1 % (0-2.5); Eosinophils # (Auto) 0.3 Thou/mm3 (0.0-0.5); Eosinophils % (Auto) 4 % (0-10); Hematocrit 41.2 % (41.0-53.0); Hemoglobin 13.4 g/dL (13.5-16.0); Immature Granulocytes Auto 0.05 Thou/mm3 (0.00-0.00); Lymphocytes # (Auto) 1.7 Thou/mm3 (1.0-4.8); Lymphocytes % (Auto) 22 % (10-50); Mean Corpuscular HGB Conc 32.5 g/dl (31.0-37.0); Mean Corpuscular Hemoglobin 28.2 pg (25.0-35.0); Mean Corpuscular Volume 87 fL (80-100); Monocytes # (Auto) 1.0 Thou/mm3 (0.0-0.8); Monocytes % (Auto) 12 % (0-12); Neutrophils # (Auto) 4.8 Thou/mm3 (1.8-7.7); Neutrophils % (Auto) 62 % (37-80); Nucleated Red Blood Cell # 0.00 Thou/mm3 (0.00-0.00); Nucleated Red Blood Cell % 0 /100 WBC (0); Platelet Count 306 Thou/mm3 (140-440); RDW Standard Deviation 46.4 fL (35.1-43.9); Red Blood Count 4.76 Miln/mm3 (4.50-5.90); White Blood Count 7.8 Thou/mm3 (3.8-10.6)
--- NOTE | 2025-07-08 10:46 | XR_ITS ---
Examination: CT abdomen with intravenous contrast CT pelvis with intravenous contrast 2-D coronal reconstructions 2-D sagittal reconstructions Date and time of exam: July 08, 2025, 1152 hours COMPARISON: September 13, 2024 Lesions: Bloody stools 2 weeks, history of Crohn's disease. CTDI: vol (mGy) 9.05 DLP: (mGycm) 527 Technique: Multiple axial sections of the abdomen and pelvis have been obtained. 64 slice high-resolution scanner used. 3 mm axial sections have been obtained, post intravenous injection 60 cc [id number] 2-D sagittal, coronal reconstructions obtained. Low dose protocols were performed. One or more of the following dose reduction techniques were used; automated exposure control, adjustment of the mA and/or KV according to patient size, use of iterative reconstruction technique. Findings: No focal liver or splenic lesions, hepatomegaly 18 cm Absent gallbladder No pancreatic or adrenal mass No renal or ureteral calculi Large hernia defect right lateral abdominal wall, at least 8 cm, containing colon and small bowel but no incarcerated bowel The colon shows hyperemia especially the descending colon and rectosigmoid consistent with nonspecific colitis Rectal molina are mildly thickened. No prostatomegaly Contracted urinary bladder with wall thickening No pericecal inflammatory change Intact osseous structures IMPRESSION: Diffuse colitis pattern consistent with the patient's diagnosis of Crohn's disease No obstruction
[2025-07-08 10:57] LABS: Bilirubin,Urine Negative (Negative); Blood,Urine Negative (Negative); Clarity,Urine Clear (Clear/Hazy); Color,Urine Lt-Yellow (Lt Yel-Yel); Culture Indicated,Urine Not Indicated; Glucose, Urine Negative (Negative); Ketones,Urine Negative (Negative); Leukocyte Esterase,Urine Negative (Negative); Nitrite,Urine Negative (Negative); PH,Urine 6.0 (5.0-7.0); Protein,Urine Negative (Neg - Trace); RBC,Urine 2 /hpf (0-3); Specific Gravity,Urine 1.028 (1.001-1.035); Squamous Epithelial Cell,Urine < 1 /hpf (0-5); Urobilinogen,Urine Negative mg/dL (0.0-1.0); WBC,Urine 2 /hpf (0-5)
--- NOTE | 2025-07-08 11:01 | EDNOTE_ITS ---
ED GI Bleed RME/HPI General Chief complaint: GI Bleed Stated complaint: BLOODY STOOL & RLQ ABD PAIN; HX CROHN'S Time Seen by Provider: 07/08/25 09:44 Arrival date/time: 07/08/25 09:17 RME / HPI RME / HPI Narrative: 07/08/25 09:17 This is a 24-year-old male that comes into the emergency room with complaints of diffuse abdominal pain for the past 2 weeks. Patient states he has history of chron's disease. Patient states this morning he woke up and he had blood in his stool. I have greeted and performed a focused initial assessment of this patient. Initial appropriate labs ordered at this time. A comprehensive ED assessment and evaluation of the patient and analysis of all test and completion of medical decision making process will be conducted by additional ED provider. DR. TAN MAIN ED EVALUATION: 24-year-old male presents to the Emergency Department accompanied by his fianc?e for abdominal pain and rectal bleeding that began this morning. The patient reports approximately 1 cup of blood mixed with mucus snot in the stool. He denies prior episodes of rectal bleeding. He denies fever, chills, nausea, vomiting, or urinary symptoms. He has a history of bowel perforation requiring surgery in May of last year, followed by a reversal in August. During that surgery, the surgeon noted bowel inflammation suggestive of Crohn?s disease, but no formal diagnosis was made. The patient is not currently on any medications. He follows with a primary care provider at [facility]. Related Data Home Medications ?Medication ?Instructions ?Recorded ?Confirmed mesalamine 500 mg capsule,extended 500 mg PO TID 08/1711/14/24 release (Pentasa) Previous Rx's ?Medication ?Instructions ?Recorded prednisone 5 mg tablets in a dose 5 mg PO QDAY #48 tab s 07/16/24 pack azathioprine 50 mg tablet 50 mg PO BID #60 tabs oxycodone-acetaminophen 10 mg-325 1 tab PO Q6H PRN ruby n #30 tabs 08/25/24 mg tablet (Percocet) azathioprine 50 mg tablet 50 mg PO QDAY #30 tabs 07/08 mesalamine 500 mg capsule,extended 1,000 mg (2 x 500 m g) PO BID #120 07/08/25 release caps prednisone 5 mg tablet See Taper PO BID #140 tabs 1 09/07/24 Allergies Allergy/AdvReac Type Severity Reaction Status Date / Time No Known Allergies Allergy Verified 07/08/25 09:21 Review of Systems Review of Systems Systems Reviewed: All systems reviewed, normal except as documented Past Medical History Past Medical History PSYCHO/SOCIAL: Positive Attention Deficit Hyperactivity Disorder Family History FAMILY HISTORY: Positive Family Surgery Surgical History SURGICAL: Positive Abdominal Surgery and Bowel Surgery Social History SMOKING STATUS: Never smoker SECOND HAND EXPOSURE: No SUBSTANCE USE: does not use ALCOHOL: Never ED Exam Narrative Physical exam: GENERAL APPEARANCE: alert and oriented x 4, well-developed, well-nourished, appears mildly uncomfortable, no acute distress VITALS: All vitals were reviewed and the pulse ox is 99% on room air, which is normal according to my interpretation. HEENT: Normocephalic, atraumatic; pupils equal, round, reactive to light; EOMI; mucous membranes pink, moist; oropharynx clear NECK: Supple LUNGS: CTABL; no wheezes, no rales, no rhonchi HEART: Regular rate, regular rhythm; normal S1, S2; no murmurs ABDOMEN: Mild bloating with right-sided abdominal tenderness; no rebound or guarding; bowel sounds present; healed surgical scar on right abdomen BACK: no CVA tenderness EXTREMITIES: atraumatic; no edema NEUROLOGIC: awake; alert and oriented x4; cranial nerves II-XII grossly intact; no focal sensory or motor deficits PSYCHIATRIC: appropriate mood and affect SKIN: warm, dry, normal color; no rashes Course Quality Measures none Orders Category Date Time Status CT Screening NOW Care 07/08/25 10:46 Active Occult Blood,Stool (Nursing) NOW Care 07/08/25 11:[address] abdomen pelvis w con Stat Exams 07/08/25 10:46 Completed CBC Stat Lab 07/08/25 10:10 Completed Comprehensive Metabolic Panel Stat Lab 07/08/25 10:10 Completed Lipase Stat Lab 07/08/25 10:10 Completed PT [Prothrombin Time with INR] Stat Lab 07/08/25 10:10 Completed Partial Thromboplastin Time Stat Lab 07/08/25 10:10 Completed Type and Screen Stat Lab 07/08/25 10:10 Completed Urinalysis, C/S if Indicated Stat Lab 07/08/25 10:36 Completed Vital Signs Vital signs: Vital Signs Temperature 99.0 F 07/08/25 09:47 Pulse Rate 86 07/08/25 09:47 Respiratory Rate 18 07/08/25 09:47 Blood Pressure 132/73 H 07/08/25 09:47 Pulse Oximetry (%) 99 07/08/25 09:47 Oxygen Delivery Method Room Air 07/08/25 09:47 GI Bleed MDM Narrative MDM Narrative:: I, Harrietkimmie Velasco, am scribing for and in the presence of Dr. Tan. Patient data External records reviewed:: [facility] previous records Clinical information provided by:: patient Social determinants that could affect healthcare access:: none Patient has the following chronic illnesses:: He has a history of bowel perforation requiring surgery in May of last year, followed by a reversal in August. During that surgery, the surgeon noted bowel inflammation suggestive of Crohn?s disease, but no formal diagnosis was made. The patient is not currently on any medications. How is presenting disease/condition affected by chronic disease/condition?: exacerbated by Evaluation data The following diagnostics were reviewed and interpreted by me:: lab results and radiology exam(s) Lab and/or radiology exams considered but not ordered:: none Interpretation Summary: Procedure(s): CT abdomen pelvis w con Accession Number(s): [id number] cc: Louisa Tejada PA-C; Luis Cunningham MD; Georgiana Tan MD~ Examination: CT abdomen with intravenous contrast CT pelvis with intravenous contrast 2-D coronal reconstructions 2-D sagittal reconstructions Date and time of exam: July 08, 2025, 1152 hours COMPARISON: September 13, 2024 Lesions: Bloody stools 2 weeks, history of Crohn's disease. CTDI: vol (mGy) 9.05 DLP: (mGycm) 527 Technique: Multiple axial sections of the abdomen and pelvis have been obtained. 64 slice high-resolution scanner used. 3 mm axial sections have been obtained, post intravenous injection 60 cc [id number] 2-D sagittal, coronal reconstructions obtained. Low dose protocols were performed. One or more of the following dose reduction techniques were used; automated exposure control, adjustment of the mA and/or KV according to patient size, use of iterative reconstruction technique. Findings: No focal liver or splenic lesions, hepatomegaly 18 cm Absent gallbladder No pancreatic or adrenal mass No renal or ureteral calculi Large hernia defect right lateral abdominal wall, at least 8 cm, containing colon and small bowel but no incarcerated bowel The colon shows hyperemia especially the descending colon and rectosigmoid consistent with nonspecific colitis Rectal molina are mildly thickened. No prostatomegaly Contracted urinary bladder with wall thickening No pericecal inflammatory change Intact osseous structures IMPRESSION: Diffuse colitis pattern consistent with the patient's diagnosis of Crohn's disease No obstruction Dictated By: Luis Cunningham MD Medications / Prescriptions Medications or Prescriptions considered but not ordered:: none Medication administrations:: see above if any Consultations Consultation(s) initiated? (list below): Yes Consultation #1 (Physician, Specialty, Details): Discussed test HPI, PMHx, lab, radiology results and/or management with Dr. Martha hoang. Patient can follow as an outpatient. Time: 13:16 Diagnosis GI bleed differential diagnosis: other (Crohn's, ulcerative colitis, infectious colitis, and lower GI bleed.) Most likely diagnosis given after review of the tests above:: Irritable bowel disease Colitis Admission Indicated Admission indicated?: not indicated Admission Request Was there a request for admission?: No Disposition Plan Disposition Plan: Discharge Discharge Attestation Discharge Attestation: The patient and all family members were given an opportunity to ask questions and understood the discharge instructions. Discharge instructions specifically effects, indications for sooner follow up or return to the emergency department, and the expected course of current diagnosis. Patient condition: Stable Discharge Plan Plan Patient Disposition: HOME (Self Care) Prescriptions/Referrals Prescriptions/Med Rec: New mesalamine 500 mg capsule, extended release 1,000 mg PO BID Qty: 120 0RF prednisone 5 mg tablet See Taper PO BID Qty: 140 0RF Taper: Prednisone Taper 15 mg TWICE A DAY for 7 Days and 0 Hour 12.5 mg TWICE A DAY for 7 Days and 0 Hour 10 mg TWICE A DAY for 7 Days and 0 Hour 7.5 mg TWICE A DAY for 7 Days 5 mg TWICE A DAY for 7 Days azathioprine 50 mg tablet 50 mg PO QDAY Qty: 30 0RF No Action silver nitrate applicators 75-25 % stick 2 ea topical ONCE Qty: 2 0RF mesalamine [Pentasa] 500 mg capsule, extended release 500 mg PO TID oxycodone-acetaminophen [Percocet] 10-325 mg tablet 1 tab PO Q6H MDD 6 tabs PRN (Reason: pain) Qty: 30 0RF Rx Instructions: pt underwent laparotomy surgery on 08/18/24 prednisone 5 mg tablets,dose pack 5 mg PO QDAY Qty: 48 0RF azathioprine 50 mg tablet 50 mg PO BID Qty: 60 3RF Referrals: graduate [Other] - In 1 week [facility] [Outside] Louisa Tejada PA-C [Primary Care Provider] - In 1 week Problem List Clinical Impression: Irritable bowel disease, Colitis Patient/Caregiver Discharge Instructions Education Materials: Crohn Disease Lifestyle Manage Print Language: Urdu Stand Alone Forms: [employer] Award Info., Patient Portal Info Letter
[2025-07-08 11:08] LABS: INR 1.0 (0.9-1.3); Partial Thromboplastin Time 29.1 Seconds (22.0-36.0); Prothrombin Time 10.5 Seconds (9.0-12.2)
[2025-07-08 11:12] LABS: Alanine Aminotransferase 23 U/L (10-49); Albumin, Serum 4.6 gm/dL (3.5-5.0); Albumin/Globulin Ratio 2.2 (1.2-2.2); Alkaline Phosphatase 87 U/L (46-116); Anion Gap 8 (7-16); Aspartate Amino Transferase 23 U/L (0-34); BUN/Creatinine Ratio 16 Ratio (12-20); Bilirubin,Total 0.2 mg/dL (0.3-1.2); Blood Urea Nitrogen 13 mg/dL (9-23); Calcium 9.5 mg/dL (8.3-10.6); Calcium (Corrected) 9.5 mg/dL (8.5-10.1); Carbon Dioxide 27.3 mMol/L (20.0-31.0); Chloride 107 mMol/L (98-107); Creatinine (Component) 0.8 mg/dL (0.6-1.3); Estimated Creatinine Clearance 162.7 mL/min (>60); Globulin 2.1 gm/dL (2.3-3.5); Glucose 94 mg/dL (74-106); Lipase 39 U/L (12-53); Osmolality,Calculated 283 (275-295); Potassium 4.2 mMol/L (3.4-5.1); Sodium 142 mMol/L (136-145); Total Protein 6.7 gm/dL (5.7-8.2); eGFR > 60 See Note
--- NOTE | 2025-07-08 13:14 | PRELIM_ITS ---
CT scan of the abdomen and pelvis with intravenous contrast (axial sections with sagittal and coronal reformats) July 08, 2025 at 1152 hours Clinical History: Abdominal pain, bloating, history of perforation. Comparison: Reference is made to the prior report dated September 13, 2024. Findings: Dependent atelectasis is seen at the lung bases. The gallbladder is surgically absent. Mildly prominent intrahepatic bile ducts is seen. There is mild fatty liver. The pancreas, spleen, kidneys and adrenals are unremarkable. There is a 6.5 cm right paramedial ventral abdominal wall hernia containing bowel loops and its mesentery without signs of obstruction or incarceration. There is bowel anastomosis in the anterior lower abdomen. A moderate amount of fecal material is present in the colon. There is submucosal fat proliferation and herniated bowel loops without fat stranding, which may be sequelae of chronic colitis. There are multiple enlarged lymph nodes at the root of the mesentery. The urinary bladder is incompletely distended at the time of the examination. There is no free fluid, free air or abscess. The aorta is unremarkable. The osseous structures are unremarkable. Impression: 1. Bowel containing right paramedial ventral abdominal wall hernia without definite signs of obstruction or incarceration. 2. Enlarged lymph nodes at the root of the mesentery. Recommend clinical correlation. 3. Other findings as described above. Report Electronically Signed By: Mino Velazquez 07/08/2025 1:14:03 PM [EST]
[2025-07-08 13:43] VITALS: BP 120/72; PULSE 62; RESP 16; O2SAT 100
== END 2025-07-08 13:45 | disposition home or self-care (01) ==
PROVIDERS: Nurse Practitioner Family; Emergency Provider Emergency Medicine; PCP Physician Assistant Medical
DX: K50.911 Crohn's disease, unspecified, with rectal bleeding (principal); K58.9 Irritable bowel syndrome, unspecified
CPT/HCPCS: 36415; 74177; 80053; 81001; 83690; 85025; 85610; 85730; 86850; 86900; 86901; 99283; A4649; Q9967